=== PATIENT | male | born 1975 | race Caucasian/White ===

== ENCOUNTER 2021-04-18 03:35 | Emergency (ER) | payer BC, OTHER ==
[~2021-04-18] VITALS: Ht 172.7 cm; Wt 79.2 kg
[2021-04-18] MEDS ORDERED: ZOLO50TA PO (03:47)
[2021-04-18] MEDS ORDERED: IBUP1TAB6 PO (03:58)
[2021-04-18 05:35] LABS: BASO % 0.3 % (0.0-1.0); EOS % 0.2 % (0.0-3.0); HEMATOCRIT 40.6 % (42.0-52.0); HEMOGLOBIN 13.9 g/dl (13.5-17.5); LYMPH # 1.2 10^3/uL (1.5-5.0); LYMPH % 9.1 % (24.0-44.0); MEAN CORPUSCULAR HEMOGLOBIN 30.1 pg (27.0-33.0); MEAN CORPUSCULAR HGB CONC 34.2 g/dl (32.0-36.5); MEAN CORPUSCULAR VOLUME 87.9 fl (80.0-96.0); MONO # 0.9 10^3/uL (0.0-0.8); MONO % 7.3 % (2.0-8.0); NEUTROPHILS # 10.5 10^3/uL (1.5-8.5); NEUTROPHILS % 82.8 % (36.0-66.0); PLATELET COUNT, AUTOMATED 198 10^3/uL (150-450); RED BLOOD COUNT 4.62 10^6/uL (4.30-6.10); WHITE BLOOD COUNT 12.7 10^3/uL (4.0-10.0)
[2021-04-18] MEDS ORDERED: MORPHINE 4 MG/ML 1ML VIAL/SYRINGE (J2270) IV ONE (05:35)
[2021-04-18 06:02] LABS: ALT/SGPT 28 U/L (12-78); BILIRUBIN,DIRECT 0.1 MG/DL (0.0-0.2); BILIRUBIN,TOTAL 0.4 MG/DL (0.2-1.0); BLOOD UREA NITROGEN 14 MG/DL (7-18); CALCIUM LEVEL 9.2 MG/DL (8.5-10.1); CARBON DIOXIDE LEVEL 27 MEQ/L (21-32); CHLORIDE LEVEL 107 MEQ/L (98-107); CREATININE FOR GFR 1.37 MG/DL (0.70-1.30); GLOMERULAR FILTRATION RATE > 60.0 (>60); GLUCOSE, FASTING 131 MG/DL (70-100); LIPASE 165 U/L (73-393); POTASSIUM SERUM 3.9 MEQ/L (3.5-5.1); SODIUM LEVEL 142 MEQ/L (136-145); TOTAL PROTEIN 7.3 GM/DL (6.4-8.2)
[2021-04-18] MEDS ORDERED: KETOROLAC 30 MG/ML 1ML VIAL IV ONE (06:50)
--- NOTE | 2021-04-18 07:12 | REPVR ---
PROCEDURE INFORMATION: Exam: US Abdomen, Limited; Right Upper Quadrant Exam date and time: 04/18/2021 6:24 AM Age: 45 years old Clinical indication: Abdominal pain; Epigastric; Additional info: Ruq pain TECHNIQUE: Imaging protocol: US abdomen. Real time ultrasound with image documentation. Limited exam focused on the right upper quadrant. COMPARISON: No relevant prior studies available. FINDINGS: Liver: Normal. No masses. Gallbladder: Large gallstone measuring 2.3 cm seen in the gallbladder neck. There is no gallbladder wall thickening which measures around 2-3 mm. There is no pericholecystic fluid. Common bile duct: The CBD is slightly prominent measuring 7 mm. Pancreas: The pancreatic head is unremarkable. The body and the tail of the pancreas are obscured by bowel gas. Right kidney: The right kidney measures 10.3 x 4.5 x 4.5 cm. There is no right renal mass, stone, cyst or hydronephrosis. IMPRESSION: 1. 2.3 cm gallstone in the gallbladder neck with no sonographic evidence of acute cholecystitis. 2. Slightly prominent CBD at 7 mm. Correlate with symptoms, LFTs and bilirubin level. If indicated MRCP may be obtained for further evaluation. Electronically signed by: Sven Augustin On 04/18/2021 07:11:14 AM
[2021-04-18 08:45] VITALS: BP 124/80
== END 2021-04-18 08:49 | disposition home or self-care (01) ==
LOC: M ED 03:35
DX: K80.50 Calculus of bile duct without cholangitis or cholecystitis without obstruction (principal); K58.9 Irritable bowel syndrome, unspecified; Z79.899 Other long term (current) drug therapy
CPT/HCPCS: 76705; 80048; 80076; 83690; 85025; 93041; 96374; 96375; 99284; J1885; J2270

== ENCOUNTER 2021-04-19 04:54 | Inpatient (IN) | payer OTHER ==
[~2021-04-19] VITALS: Ht 172.7 cm; Wt 79.2 kg
[~2021-04-19 04:54] MED LIST: IBUP1TAB6 PO; ZOLO50TA PO
[2021-04-19 07:25] VITALS: BP 123/76
[2021-04-19] MEDS ORDERED: MORPHINE 4 MG/ML 1ML VIAL/SYRINGE (J2270) IV PRN (07:35)
[2021-04-19] MEDS ORDERED: ONDANSETRON 4MG/2ML VIAL IV PRN (07:35)
[2021-04-19] MEDS ORDERED: HOME MED LIST COMPLETE! XX SCH (08:00)
[2021-04-19 08:12] LABS: BASO % 0.4 % (0.0-1.0); EOS # 0.1 10^3/uL (0.0-0.5); EOS % 0.5 % (0.0-3.0); HEMATOCRIT 39.6 % (42.0-52.0); HEMOGLOBIN 13.1 g/dl (13.5-17.5); LYMPH # 1.5 10^3/uL (1.5-5.0); LYMPH % 14.2 % (24.0-44.0); MEAN CORPUSCULAR HEMOGLOBIN 30.1 pg (27.0-33.0); MEAN CORPUSCULAR HGB CONC 33.1 g/dl (32.0-36.5); MONO % 14.2 % (2.0-8.0); NEUTROPHILS # 7.5 10^3/uL (1.5-8.5); NEUTROPHILS % 70.1 % (36.0-66.0); PLATELET COUNT, AUTOMATED 180 10^3/uL (150-450); RED BLOOD COUNT 4.35 10^6/uL (4.30-6.10)
[2021-04-19 08:22] LABS: PROTHROMBIN TIME 13.6 SECONDS (12.7-14.5)
[2021-04-19 08:23] LABS: PARTIAL THROMBOPLASTIN TIME 37.9 SECONDS (25.9-37.0)
[2021-04-19 08:26] LABS: D-DIMER QUANT 449.21 ng/ml (<500)
[2021-04-19 08:41] LABS: ALBUMIN 3.7 GM/DL (3.2-5.2); ALT/SGPT 27 U/L (12-78); BILIRUBIN,DIRECT 0.3 MG/DL (0.0-0.2); BILIRUBIN,TOTAL 1.1 MG/DL (0.2-1.0); BLOOD UREA NITROGEN 15 MG/DL (7-18); C REACTIVE PROTEIN QUANTITATIV 5.43 MG/DL (0.00-0.30); CALCIUM LEVEL 8.9 MG/DL (8.5-10.1); CARBON DIOXIDE LEVEL 29 MEQ/L (21-32); CHLORIDE LEVEL 108 MEQ/L (98-107); CPK CREATINE PHOSPHOKINASE 122 U/L (39-308); CREATININE FOR GFR 1.19 MG/DL (0.70-1.30); FERRITIN 170 NG/ML (26-388); GLOMERULAR FILTRATION RATE > 60.0 (>60); GLUCOSE, FASTING 112 MG/DL (70-100); LDH LACTATE DEHYDROGENASE 166 U/L (87-241); MAGNESIUM LEVEL 2.3 MG/DL (1.8-2.4); NT-PRO BNP 252 PG/ML (<125); SODIUM LEVEL 142 MEQ/L (136-145); TOTAL PROTEIN 6.8 GM/DL (6.4-8.2); TROPONIN I < 0.02 NG/ML (< 0.10)
[2021-04-19 08:45] LABS: MONO # 1.5 10^3/uL (0.0-0.8); WHITE BLOOD COUNT 10.6 10^3/uL (4.0-10.0)
[2021-04-19] MEDS: D5W/0.9% SODIUM CHLORIDE 1,000 ML IV SCH ×3 (10:50→22:34)
[2021-04-19] MEDS: PANTOPRAZOLE 40MG VIAL (C9113 PER 1) IV SCH (10:51)
[2021-04-19] MEDS: PIPERACILLIN/TAZOBACTAM SOD 3.375 GM in D5W MINI-BAG PLUS 50 ML IV SCH ×3 (10:51→22:34)
--- NOTE | 2021-04-19 11:05 | HPEPDOC ---
General Date of Admission Apr 19, 2021 at 07:25 Date of Service: Apr 19, 2021 Chief Complaint The patient is a 45-year-old male admitted with a reason for visit of Gallbladder Disease. Source: Patient History of Present Illness 45-year-old male with past medical history of anxiety, gallstones diagnosed on 04/18/2021, incidentally found to be Covid 19+ on 04/19/2021 (asymptomatic) presented as a transfer from [facility] for right upper quadrant pain and nausea. Patient reports that he is right upper quadrant pain and nausea started on 04/17/2021 for this he had come to our emergency room and had gallbladder ultrasound done which showed a large gallstone at the neck of the gallbladder without any signs of inflammation or acute cholecystitis patient felt better after a few hours in the emergency room the pain had resolved and he was able to tolerate food so he was discharged home in the morning of 04/18/2021 to follow-up with surgeon. The pain again came back on the night of 04/18/2021. The pain was located in the right upper quadrant sharp stabbing in nature constant 8/10 in intensity without any radiation associated with nausea. So he went to [facility] emergency room. He had a CT scan there which showed distended gallbladder thickening and edema of the gallbladder wall soft tissue stranding and edema within the sabina hepatis all suggesting of acute cholecystitis. As [facility] did not have any surgical facilities so the patient was transf erred here and general surgeon Dr. Bee was consulted. On my exam this morning patient's pain had already resolved even before reaching this hospital, no nausea. He was complaining of feeling hungry. Patient did not have any symptoms from Covid -19. Home Medications Scheduled Sertraline Hcl (Zoloft) 50 Mg Tablet, 50 MG PO QHS, (Reported) Allergies Coded Allergies: No Known Allergies (Unverified , 04/18/21) Past Medical History Medical History anxiety, gall stone Surgical History vasectomy Family History Significant Family History: Diabetes (paternal grandmother), Heart disease (Paternal grandmother) Social History * Smoker: former Smoker (Quit in 2014) Alcohol: Denies Drugs: denies A-FIB/CHADSVASC A-FIB History Current/History of A-Fib/PAF?: No Review of Systems Constitutional: Denies: Chills, Fever, Night Sweats Eyes: Denies: Pain, Vision change ENT: Denies: Head Aches, Ear Pain, Dysphagia Skin: Denies: Rash, Lesions, Breakdown Pulmonary: Denies: Dyspnea, Cough Cardiovascular: Denies: Chest Pain, Palpitations, Orthopnea, Paroxysmal Noc. Dyspnea, Lt Headedness Gastrointestinal: Reports: Nausea, Abdominal Pain Genitourinary: Denies: Dysuria, Frequency, Incontinence, Retention Hematologic: Denies: Bruising, Bleeding Excessively Musculoskeletal: Denies: Neck Pain, Back Pain, Joint Pain, Muscle Pain, Spasms Physical Examination General Exam: Positive: Alert, Cooperative, No Acute Distress Eye Exam: Positive: PERRLA, Conjunctiva & lids normal, EOMI; Negative: Sclera icteric ENT Exam: Positive: Atraumatic, Mucous membr. moist/pink, Pharynx Normal Neck Exam: Positive: Supple; Negative: JVD, thyromegaly Chest Exam: Positive: Clear to auscultation, Normal air movement Heart Exam: Positive: Rate Normal, Regular Rhythm, Normal S1, Normal S2; Negative: Murmurs, Rubs Abdomen Exam: Positive: Normal bowel sounds, Soft; Negative: Tenderness, Hepatospenomegaly Extremity Exam: Negative: Clubbing, Cyanosis, Edema Skin Exam: Positive: Nl turgor and temperature; Negative: Breakdown, Lesion Psych Exam: Positive: Memory Intact, Oriented x 3 Vital Signs Vital Signs Date Time Temp Pulse Resp B/P (MAP) Pulse Ox O2 Delivery O2 Flow Rate FiO2 04/19/21 07:25 98.5 83 18 123/76 (92) 97 Room Air Laboratory Data Labs 24H Laboratory Tests 2 04/19/21 07:58: Immature Granulocyte % (Auto) 0.6, Neutrophils (%) (Auto) 70.1H, Lymphocytes (%) (Auto) 14.2L, Monocytes (%) (Auto) 14.2H, Eosinophils (%) (Auto) 0.5, Basophils (%) (Auto) 0.4, Neutrophils # (Auto) 7.5, Lymphocytes # (Auto) 1.5, Monocytes # (Auto) 1.5H, Eosinophils # (Auto) 0.1, Basophils # (Auto) 0.0, Nucleated Red Blood Cells % (auto) 0.0 04/19/21 07:59: Prothrombin Time 13.6, Prothromb Time International Ratio 1.00, Activated Partial Thromboplast Time 37.9, Fibrinogen 436, D-Dimer, Quantitative 449.21, Anion Gap 5L, Glomerular Filtration Rate > 60.0, Calcium Level 8.9, Magnesium Level 2.3, Ferritin 170, Total Bilirubin 1.1#H, Direct Bilirubin 0.3H, Aspartate Amino Transf (AST/SGOT) 16, Alanine Aminotransferase (ALT/SGPT) 27, Alkaline Phosphatase 79, Lactate Dehydrogenase 166, Total Creatine Kinase 122, Troponin I < 0.02, C-Reactive Protein, Quantitative 5.43H, MK-Iqi-R-Type Natriuretic Peptide 252H, Total Protein 6.8, Albumin 3.7, Albumin/Globulin Ratio 1.2 CBC/BMP Laboratory Tests 04/19/21 07:58 04/19/21 07:59 Microbiology Microbiology 04/19/21 Blood Culture, Received Pending Assessment/Plan 45-year-old male with past medical history of anxiety, gallstones diagnosed on 04/18/2021, incidentally found to be Covid 19+ on 04/19/2021 (asymptomatic) presented as a transfer from [facility] for right upper quadrant pain and nausea. Patient reports that he is right upper quadrant pain and nausea started on 04/17/2021 for this he had come to our emergency room and had gallbladder ultrasound done which showed a large gallstone at the neck of the gallbladder without any signs of inflammation or acute cholecystitis patient felt better after a few hours in the emergency room the pain had resolved and he was able to tolerate food so he was discharged home in the morning of 04/18/2021 to follow-up with surgeon. The pain again came back on the night of 04/18/2021. The pain was located in the right upper quadrant sharp stabbing in nature constant 8/10 in intensity without any radiation associated with nausea. So he went to [facility] emergency room. He had a CT scan there which showed distended gallbladder thickening and edema of the gallbladder wall soft tissue stranding and edema within the sabina hepatis all suggesting of acute cholecystitis. Acute cholecystitis Will allow clear liquids IV fluid, Zosyn, Zofran, morphine as needed for pain Surgical consult Dr. Bee COVID-19 infection Incidental finding, asymptomatic at this time Patient reports that he traveled to [facility] from 04/13/2021 to 04/17/2021. Plan / VTE VTE Prophylaxis Ordered?: Yes REJI SAUER MD Apr 19, 2021 11:05
--- NOTE | 2021-04-19 11:12 | CR.PDOC ---
General Surgery Consultation Date of Consultation 04/19/21 History and Physical CONSULT REPORT FOR: hospitalist service (Dr. Sanches) REASON FOR CONSULTATION: cholecystitis, abdominal pain HISTORY OF PRESENT ILLNESS: Patient is a 45-year-old male, generally healthy who has been having epigastric and right upper quadrant pain since about 2 days ago. He reports sudden onset of pain Thursday evening to morning. He was seen in our ER was worked up and was deemed to have biliary colic. He has a 2.3 cm stone in the neck of the gallbladder but no evidence of inflammation during our study. Had a white cell count of 12.7, normal LFTs. His pain improved with IV Toradol and was subsequently discharged home. He went home and rested but later on, had resumption of his pain prompting him to visit [facility] last night. He was evaluated there was noted to have increase in his leukocytosis to 14,000. He had a CT abdomen and pelvis and I was told that he had evidence for cholecystitis with pericholecystic wall edema as well as edema along the sabina hepatis. He was then transferred back to our hospital for further care. A Covid test was done prior to transfer and this had a positive result. He denies any cough colds loss of smell, fever. He did travel within the past 2 months to [place] in [place] for vacation. He completed 2 doses of Moderna vaccination by January of this year. He tells me prior to his transfer his pain did improve with pain medications there. He was also started on IV antibiotics while at [facility] . At the time I saw him, patient reports he is feeling well. His abdominal pain has resolved. He denies any nausea, vomiting or bloating. He is noted to be afebrile. He had one episode of biliary colic back in July, but relatively asymptomatic since then up until this episode. PAST MEDICAL HISTORY: 1. Depression PAST SURGICAL HISTORY: INCLUDES: 1. Vasectomy PREVIOUS ANESTHESIA REACTIONS: ALLERGIES: Please see below. FAMILY HISTORY: . HOME MEDICATIONS: Please see below. REVIEW OF SYSTEMS: GENERAL: [Denies chills, reports weight gain, reports feeling febrile yesterday]. HEENT: [Denies blurred vision and double vision. Denies ear symptoms. Denies hoarseness]. NECK: Denies any neck pain]. CARDIOVASCULAR: [Denies chest pain and palpitations]. MUSCULOSKELETAL: [Denies arthralgias, back pain and thrombophlebitis]. SKIN: [Denies rash]. NEUROLOGIC: [Denies headache, stroke and transient ischemic attack]. PSYCHIATRIC: [Denies anxiety and depression]. ENDOCRINE: [Denies thyroid disease]. HEMATOLOGY/ONCOLOGY: [Denies bleeding or clotting disorder]. HEART: [Denies any chest pains, palpitations, paroxysmal dyspnea, orthopnea]. PULMONARY: [Denies chronic cough, dyspnea and wheezing]. GASTROINTESTINAL: [Denies rectal bleeding, family history of colon cancer, constipation, diarrhea, dysphagia, heartburn and jaundice]. GENITOURINARY: [Denies dysuria, frequency, hematuria and nocturia]. ENDOCRINE: [Denies polydipsia, polyphagia, polyuria, heat or cold intolerance]. INFECTIOUS: [Denies any recent upper respiratory tract infection, UTI, need for use of antibiotics]. NUTRITION: [Reports good appetite]. PHYSICAL EXAMINATION: VITALS SIGNS: Please see below. GENERAL APPEARANCE:[Patient seen, laying in bed, awake, alert, and oriented. Comfortable, in no acute distress]. SKIN: [Warm and moist]. HEENT: [Normocephalic, atraumatic. [place] palpebral conjunctiva, anicteric sclerae. Lips and mucosa appear moist]. NECK: [Supple, no thyromegaly. No obvious jugular venous distention]. LUNGS: [Clear to auscultation bilaterally. No wheezing appreciated]. HEART: [No chest wall abnormalities. Regular rate and rhythm with no murmurs appreciated]. ABDOMEN: Abdomen is soft, nondistended. Nontender on palpation over the epigastric and right upper quadrant area. Benign appearance. No noticeable umbilical or groin herniation. No prior surgical scars. EXTREMITIES: [Extremities have no deformities. No edema identified] ANCILLARIES: . LABORATORY DATA: Please see below. IMAGING STUDIES: I reviewed the provided CT image of the CT scan abdomen and pelvis done at [facility]. This shows a distended gallbladder with noticeable cholelithiasis at the neck, mild swelling. No free perforation. No ascites. IMPRESSION AND PLAN: Cholelithiasis with acute cholecystitis Asymptomatic Covid positive Patient transfer to us for further care for his cholecystitis from [facility]. The decision making is slightly complicated by the fact that he was tested positive for Covid. He did have prior vaccination and completed 2 doses of it. He is asymptomatic from the Covid point of view. He seems to be improved clinically from the viewpoint of the cholecystitis. His labs were repeated here and his white cell count is down to 10.6. He did have some mild elevation of the bilirubin. Total bilirubin on repeat is 1.1 with a direct fraction of 0.3. Rest of the LFTs are normal. This can be due to the inflammation of the gallbladder wall and also noted inflammation at the sabina hepatis on the CT that was done at [facility] though we do need to watch this and make sure this improves to rule out very small possibility for choledocholithiasis. Clinically his pain has improved so I will start him on clear liquids today and we can advance this as he is able to tolerate this. Recommend continue with antibiotics at this time. If he is able to tolerate diet and his pain is well controlled, I would opt to have him be discharged and I will consider interval cholecystectomy as an outpatient. If he becomes or recurs his symptoms with cholecystitis despite IV antibiotics, will reevaluate him per cholecystectomy during this admission with a return on Thursday. This was also dependent whether he becomes symptomatic with his Covid infection. Vital Signs Vital Signs Date Time Temp Pulse Resp B/P (MAP) Pulse Ox O2 Delivery O2 Flow Rate FiO2 04/19/21 07:25 98.5 83 18 123/76 (92) 97 Room Air Laboratory Data Labs 24H Laboratory Tests 2 04/19/21 07:58: Immature Granulocyte % (Auto) 0.6, Neutrophils (%) (Auto) 70.1H, Lymphocytes (%) (Auto) 14.2L, Monocytes (%) (Auto) 14.2H, Eosinophils (%) (Auto) 0.5, Basophils (%) (Auto) 0.4, Neutrophils # (Auto) 7.5, Lymphocytes # (Auto) 1.5, Monocytes # (Auto) 1.5H, Eosinophils # (Auto) 0.1, Basophils # (Auto) 0.0, Nucleated Red Blood Cells % (auto) 0.0 04/19/21 07:59: Prothrombin Time 13.6, Prothromb Time International Ratio 1.00, Activated Partial Thromboplast Time 37.9, Fibrinogen 436, D-Dimer, Quantitative 449.21, Anion Gap 5L, Glomerular Filtration Rate > 60.0, Calcium Level 8.9, Magnesium Level 2.3, Ferritin 170, Total Bilirubin 1.1#H, Direct Bilirubin 0.3H, Aspartate Amino Transf (AST/SGOT) 16, Alanine Aminotransferase (ALT/SGPT) 27, Alkaline Phosphatase 79, Lactate Dehydrogenase 166, Total Creatine Kinase 122, Troponin I < 0.02, C-Reactive Protein, Quantitative 5.43H, OW-Kyr-P-Type Natriuretic Pepti de 252H, Total Protein 6.8, Albumin 3.7, Albumin/Globulin Ratio 1.2 CBC/BMP Laboratory Tests 04/19/21 07:58 04/19/21 07:59 Microbiology Microbiology 04/19/21 Blood Culture, Received Pending Home Medications Scheduled Sertraline Hcl (Zoloft) 50 Mg Tablet, 50 MG PO QHS, (Reported) Allergies Coded Allergies: No Known Allergies (Unverified , 04/18/21) WINTER DANIELS MD Apr 19, 2021 11:12
[2021-04-19] MEDS: ENOXAPARIN 40MG/0.4ML SYRINGE (J1650 PER 10MG) SC SCH (13:36)
[2021-04-19 13:58] VITALS: BP 123/71
[2021-04-19] MEDS ORDERED: ACETAMINOPHEN TAB 650MG DOSE (2X325MG) PO PRN (17:20)
[2021-04-19] MEDS: KETOROLAC 30 MG/ML 1ML VIAL IV PRN (18:25)
[2021-04-19 22:00] VITALS: BP 110/66; O2SAT 97
[2021-04-20] VITALS (8 sets, daily range): BP systolic 107–141; BP diastolic 58–78; O2SAT 95–98
[2021-04-20] MEDS: PIPERACILLIN/TAZOBACTAM SOD 3.375 GM in D5W MINI-BAG PLUS 50 ML IV SCH ×4 (03:37→22:01)
[2021-04-20] MEDS: KETOROLAC 30 MG/ML 1ML VIAL IV PRN (08:03)
[2021-04-20 08:07] LABS: BASO % 0.3 % (0.0-1.0); EOS # 0.1 10^3/uL (0.0-0.5); EOS % 1.4 % (0.0-3.0); HEMATOCRIT 36.1 % (42.0-52.0); HEMOGLOBIN 12.1 g/dl (13.5-17.5); LYMPH # 1.5 10^3/uL (1.5-5.0); LYMPH % 15.1 % (24.0-44.0); MEAN CORPUSCULAR HEMOGLOBIN 30.4 pg (27.0-33.0); MEAN CORPUSCULAR HGB CONC 33.5 g/dl (32.0-36.5); MEAN CORPUSCULAR VOLUME 90.7 fl (80.0-96.0); MONO # 1.2 10^3/uL (0.0-0.8); MONO % 12.8 % (2.0-8.0); NEUTROPHILS # 6.8 10^3/uL (1.5-8.5); PLATELET COUNT, AUTOMATED 165 10^3/uL (150-450); RED BLOOD COUNT 3.98 10^6/uL (4.30-6.10); WHITE BLOOD COUNT 9.7 10^3/uL (4.0-10.0)
[2021-04-20 08:35] LABS: BLOOD UREA NITROGEN 10 MG/DL (7-18); CALCIUM LEVEL 8.4 MG/DL (8.5-10.1); CARBON DIOXIDE LEVEL 29 MEQ/L (21-32); CHLORIDE LEVEL 111 MEQ/L (98-107); CREATININE FOR GFR 1.15 MG/DL (0.70-1.30); GLOMERULAR FILTRATION RATE > 60.0 (>60); GLUCOSE, FASTING 123 MG/DL (70-100); MAGNESIUM LEVEL 2.1 MG/DL (1.8-2.4); POTASSIUM SERUM 3.7 MEQ/L (3.5-5.1); SODIUM LEVEL 142 MEQ/L (136-145)
[2021-04-20] MEDS: PANTOPRAZOLE 40MG VIAL (C9113 PER 1) IV SCH (09:30)
[2021-04-20] MEDS: ENOXAPARIN 40MG/0.4ML SYRINGE (J1650 PER 10MG) SC SCH (09:30)
[2021-04-20] MEDS: D5W/0.9% SODIUM CHLORIDE 1,000 ML IV SCH (09:30)
--- NOTE | 2021-04-20 11:14 | ECGEPIP ---
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 No prior tracing for comparison. Clincal correlation advised Electronically Signed on 04-20-2021 11:13:51 EDT by Abby Parrish
--- NOTE | 2021-04-20 12:10 | IPNPDOC ---
Subjective Date Seen The patient was seen on 04/20/21. Subjective Chief Complaint/HPI Yesterday patient was started on clears followed by full liquids after that his abdominal pain worsened after dinner so switch back to n.p.o. status he did need 2 doses of Toradol. This morning he he did get 1 dose of Toradol at around 8 AM but at present does not have any pain or discomfort. He also had low-grade temperature last night of 100.1. No bowel movements. Will try clears this afternoon. Patient remains asymptomatic from his Covid infection. Objective Physical Examination General Exam: Positive: Alert, Cooperative, No Acute Distress Eye Exam: Positive: PERRLA, Conjunctiva & lids normal, EOMI; Negative: Sclera icteric ENT Exam: Positive: Atraumatic, Mucous membr. moist/pink, Pharynx Normal Neck Exam: Positive: Supple; Negative: JVD, thyromegaly Chest Exam: Positive: Clear to auscultation, Normal air movement Heart Exam: Positive: Rate Normal, Regular Rhythm, Normal S1, Normal S2; Negative: Murmurs, Rubs Abdomen Exam: Positive: Normal bowel sounds, Soft; Negative: Tenderness, Hepatospenomegaly Extremity Exam: Negative: Clubbing, Cyanosis, Edema Skin Exam: Positive: Nl turgor and temperature; Negative: Breakdown, Lesion Psych Exam: Positive: Memory Intact, Oriented x 3 Assessment /Plan Assessment 45-year-old male with past medical history of anxiety, gallstones diagnosed on 04/18/2021, incidentally found to be Covid 19+ on 04/19/2021 (asymptomatic) presented as a transfer from [facility] for right upper quadrant pain and nausea. Patient reports that he is right upper quadrant pain and nausea started on 04/17/2021 for this he had come to our emergency room and had gallbladder ultrasound done which showed a large gallstone at the neck of the gallbladder without any signs of inflammation or acute cholecystitis patient felt better after a few hours in the emergency room the pain had resolved and he was able to tolerate food so he was discharged home in the morning of 04/18/2021 to follow-up with surgeon. The pain again came back on the night of 04/18/2021. The pain was located in the right upper quadrant sharp stabbing in nature constant 8/10 in intensity without any radiation associated with nausea. So he went to [facility] emergency room. He had a CT scan there which showed distended gallbladder thickening and edema of the gallbladder wall soft tissue stranding and edema within the sabina hepatis all suggesting of acute cholecystitis. Acute cholecystitis Will allow clear liquids IV fluid, Zosyn, Zofran, toradol prn Surgical consult Dr. Bee appreciated will advance diet to clears. COVID-19 infection Incidental finding, asymptomatic at this time Patient reports that he traveled to [facility] from 04/13/2021 to 04/17/2021. Plan/VTE VTE Prophylaxis Ordered?: Yes VS, I&O, 24H, Fishbone Vital Signs/I&O Vital Signs Date Time Temp Pulse Resp B/P (MAP) Pulse Ox O2 Delivery O2 Flow Rate FiO2 04/20/21 06:37 100.0 Room Air 04/20/21 05:32 95 04/20/21 05:32 102 18 109/69 (82) I&O- Last 24 Hours up to 6 AM 04/20/21 06:00 Intake Total 1650 ml Output Total 900 ml Balance 750 ml Laboratory Data 24H LABS Laboratory Tests 2 04/20/21 07:47: Immature Granulocyte % (Auto) 0.4, Neutrophils (%) (Auto) 70.0H, Lymphocytes (%) (Auto) 15.1L, Monocytes (%) (Auto) 12.8H, Eosinophils (%) (Auto) 1.4, Basophils (%) (Auto) 0.3, Neutrophils # (Auto) 6.8, Lymphocytes # (Auto) 1.5, Monocytes # (Auto) 1.2H, Eosinophils # (Auto) 0.1, Basophils # (Auto) 0.0, Nucleated Red Blood Cells % (auto) 0.0, Anion Gap 2L, Glomerular Filtration Rate > 60.0, Calcium Level 8.4L, Magnesium Level 2.1 CBC/BMP Laboratory Tests 04/20/21 07:47 Microbiology Microbiology 04/19/21 Blood Culture - Preliminary, Resulted No growth after 24 hours . All specim... REJI SAUER MD Apr 20, 2021 12:10
[2021-04-21] VITALS: O2SAT 95
[2021-04-21 04:00] VITALS: O2SAT 98
[2021-04-21] MEDS: PIPERACILLIN/TAZOBACTAM SOD 3.375 GM in D5W MINI-BAG PLUS 50 ML IV SCH ×2 (04:25→09:26)
[2021-04-21 05:39] VITALS: BP 119/63
[2021-04-21 07:59] LABS: BASO % 0.3 % (0.0-1.0); EOS # 0.2 10^3/uL (0.0-0.5); EOS % 1.7 % (0.0-3.0); HEMATOCRIT 36.2 % (42.0-52.0); HEMOGLOBIN 11.9 g/dl (13.5-17.5); LYMPH # 1.8 10^3/uL (1.5-5.0); LYMPH % 18.9 % (24.0-44.0); MEAN CORPUSCULAR HEMOGLOBIN 30.1 pg (27.0-33.0); MEAN CORPUSCULAR HGB CONC 32.9 g/dl (32.0-36.5); MEAN CORPUSCULAR VOLUME 91.6 fl (80.0-96.0); MONO # 1.1 10^3/uL (0.0-0.8); NEUTROPHILS # 6.3 10^3/uL (1.5-8.5); NEUTROPHILS % 66.7 % (36.0-66.0); PLATELET COUNT, AUTOMATED 179 10^3/uL (150-450); RED BLOOD COUNT 3.95 10^6/uL (4.30-6.10); WHITE BLOOD COUNT 9.5 10^3/uL (4.0-10.0)
[2021-04-21 08:00] VITALS: O2SAT 98
[2021-04-21 08:21] LABS: BLOOD UREA NITROGEN 10 MG/DL (7-18); CALCIUM LEVEL 8.7 MG/DL (8.5-10.1); CARBON DIOXIDE LEVEL 29 MEQ/L (21-32); CHLORIDE LEVEL 108 MEQ/L (98-107); CREATININE FOR GFR 1.21 MG/DL (0.70-1.30); GLOMERULAR FILTRATION RATE > 60.0 (>60); GLUCOSE, FASTING 92 MG/DL (70-100); POTASSIUM SERUM 3.8 MEQ/L (3.5-5.1); SODIUM LEVEL 142 MEQ/L (136-145)
[2021-04-21] MEDS: ENOXAPARIN 40MG/0.4ML SYRINGE (J1650 PER 10MG) SC SCH (09:27)
[2021-04-21] MEDS: PANTOPRAZOLE 40MG VIAL (C9113 PER 1) IV SCH (09:28)
[2021-04-21] MEDS ORDERED: ACET1TAB55 PO (11:00)
[2021-04-21] MEDS ORDERED: PANT20TA6 PO (11:00)
[2021-04-21] MEDS ORDERED: AUGM875T28 PO (11:00)
[2021-04-21 12:00] VITALS: O2SAT 97
--- NOTE | 2021-04-21 13:27 | DS.PDOC ---
Discharge Summary General Date of Admission Apr 19, 2021 at 07:25 Date of Discharge 04/21/21 Discharge Summary PROCEDURES PERFORMED DURING STAY: [None]. DISCHARGE DIAGNOSES: Acute cholecystitis Gallstone As symptomatic COVID-19 positive COMPLICATIONS/CHIEF COMPLAINT: Gallbladder Disease. HOSPITAL COURSE: 45-year-old male with past medical history of anxiety, gallstones diagnosed on 04/18/2021, incidentally found to be Covid 19+ on 04/19/2021 (asymptomatic), had COVID-19 vaccine presented as a transfer from [facility] for right upper quadrant pain and nausea. Patient reports that he is right upper quadrant pain and nausea started on 04/17/2021 for this he had come to our emergency room and had gallbladder ultrasound done which showed a large gallstone at the neck of the gallbladder without any signs of inflammation or acute cholecystitis patient felt better after a few hours in the emergency room the pain had resolved and he was able to tolerate food so he was discharged home in the morning of 04/18/2021 to follow-up with surgeon. The pain again came back on the night of 04/18/2021. The pain was located in the right upper quadrant sharp stabbing in nature constant 8/10 in intensity without any radiation associated with nausea. So he went to [facility] emergency room. He had a CT scan there which showed distended gallbladder thickening and edema of the gallbladder wall soft tissue stranding and edema within the sabina hepatis all suggesting of acute cholecystitis. Acute cholecystitis Tolerating low-fat low-cholesterol diet Will discharge home with Augmentin, pain control with Tylenol Follow-up with Dr. Bee COVID-19 infection status post vaccination Incidental finding, asymptomatic at this time Patient reports that he traveled to [facility] from 04/13/2021 to 04/17/2021. DISCHARGE MEDICATIONS: Please see below. ALLERGIES: Please see below. PHYSICAL EXAMINATION ON DISCHARGE: VITAL SIGNS: Please see below. General Exam: Positive: Alert, Cooperative, No Acute Distress Eye Exam: Positive: PERRLA, Conjunctiva & lids normal, EOMI; Negative: Sclera icteric ENT Exam: Positive: Atraumatic, Mucous membr. moist/pink, Pharynx Normal Neck Exam: Positive: Supple; Negative: JVD, thyromegaly Chest Exam: Positive: Clear to auscultation, Normal air movement Heart Exam: Positive: Rate Normal, Regular Rhythm, Normal S1, Normal S2; Negative: Murmurs, Rubs Abdomen Exam: Positive: Normal bowel sounds, Soft; Negative: Tenderness, Hepatosplenomegaly Extremity Exam: Negative: Clubbing, Cyanosis, Edema Skin Exam: Positive: Nl turgor and temperature; Negative: Breakdown, Lesion Psych Exam: Positive: Memory Intact, Oriented x 3 LABORATORY DATA: Please see below. ACTIVITY: [As tolerated]. DIET: Low-fat low-cholesterol DISCHARGE PLAN: Home DISCHARGE INSTRUCTIONS: Follow-up with Dr. Bee in 1 week PMD in 3-week DISCHARGE CONDITION: [Stable]. TIME SPENT ON DISCHARGE: 35 minutes. Vital Signs/I&Os Vital Signs Date Time Temp Pulse Resp B/P (MAP) Pulse Ox O2 Delivery O2 Flow Rate FiO2 04/21/21 05:39 99.6 67 18 119/63 (81) 97 Room Air I&O- Last 24 Hours up to 6 AM 04/21/21 06:00 Intake Total 1120 ml Output Total 1200 ml Balance -80 ml Laboratory Data Labs 24H Laboratory Tests 2 04/21/21 06:54: Immature Granulocyte % (Auto) 0.4, Neutrophils (%) (Auto) 66.7H, Lymphocytes (%) (Auto) 18.9L, Monocytes (%) (Auto) 12.0H, Eosinophils (%) (Auto) 1.7, Basophils (%) (Auto) 0.3, Neutrophils # (Auto) 6.3, Lymphocytes # (Auto) 1.8, Monocytes # (Auto) 1.1H, Eosinophils # (Auto) 0.2, Basophils # (Auto) 0.0, Nucleated Red Blood Cells % (auto) 0.0, Anion Gap 5L, Glomerular Filtration Rate > 60.0, Calcium Level 8.7, Magnesium Level 2.0 CBC/BMP Laboratory Tests 04/21/21 06:54 Microbiology Microbiology 04/19/21 Blood Culture - Preliminary, Resulted No Growth after 48 hours. All Specime... Discharge Medications Scheduled Acetaminophen (Acetaminophen) 325 Mg Tablet, 650 MG PO Q6HP Amoxicillin/Potassium Clav (Augmentin 875-125 Tablet) 1 Each Tablet, 1 TAB PO BID Pantoprazole Sodium (Pantoprazole Sodium) 20 Mg Tablet.dr, 20 MG PO DAILY Sertraline Hcl (Zoloft) 50 Mg Tablet, 50 MG PO QHS, (Reported) Allergies Coded Allergies: No Known Allergies (Unverified , 04/18/21) REJI SAUER MD Apr 21, 2021 13:27
== END 2021-04-21 14:05 | disposition home or self-care (01) ==
LOC: M ED INP 04:55 → UNDOADMIN 04:55 → M 4MAIN 07:25
PROVIDERS: ADMIT Internal Medicine; ATTEND Internal Medicine Nephrology
DX: K80.00 Calculus of gallbladder with acute cholecystitis without obstruction (principal); U07.1 COVID-19; F41.9 Anxiety disorder, unspecified; Z79.899 Other long term (current) drug therapy; Z87.891 Personal history of nicotine dependence

== ENCOUNTER → 2021-06-14 | Outpatient (CLI) | payer OTHER ==
[~2021-06-14] MED LIST changes: +ACET1TAB55 PO; +AUGM875T28 PO; +PANT20TA6 PO
== END ==
LOC: M LABSMTC 11:45
PROVIDERS: ATTEND Anesthesiology
DX: Z01.812 Encounter for preprocedural laboratory examination (principal)

== ENCOUNTER 2021-06-19 12:52 | Day surgery (SDC) | payer OTHER ==
[~2021-06-19] VITALS: Ht 172.7 cm; Wt 74.4 kg
[~2021-06-19 12:52] MED LIST changes: +AMPICILLIN SOD/SULBACTAM SOD 3 GM in D5W MINI-BAG PLUS 100 ML IV ONE; +CelecoXIB 400 MG CAP PO ONE; +LIDOCAINE 1% MDV 20ML VIAL SQ PRN; +LR 1,000 ML IV ONE
--- OUTSIDE RECORDS SUMMARY | 2021-06-19 12:56 | CCD | Continuity of Care Document ---
Author Author FRANCES INIGUEZ, Dimitri FRANZO Organization Unknown Address [address] [place] [address] [address] [place] [address] Phone [phone] Care Team Providers Care Gaming Cage Worker Name Role Phone Lucy Sanches M.D. AUTM [phone] Elizabeth Regalado AUTM Problems Description No Information Available Social History Type Date Description Comments Sex Unknown ETOH Use Denies alcohol use Tobacco Use Start: Unknown End: Unknown Patient is a former smoker 1 ppd for 22 years quit 2014 Recreational Drug Use Denies Drug Use Allergies, Adverse Reactions, Alerts Description No Known Drug Allergies Medications Active Medications SIG Qnty Indications Ordering Provide r Date Acetaminophen 325mg Tablets 2 po Q6HRS prn Unknown Pantoprazole Sodium 20mg Tablets D R take one tablet by mouth daily. Unknown Sertraline HCL 50mg Tablets 1 by mouth every day at hs Unknown Immunizations Description No Information Available Vital Signs Date Vital Result Comment 05/09/2021 9:51am BP Systolic 124 mmHg BP Diastolic 83 mmHg Heart Rate 101 /min Body Temperature 98.7 F Height 68 inches 5'8" Weight 168.00 lb BMI (Body Mass Index) 25.5 kg/m2 [place] Body Weight 154 lb Weight 76.205 kg BSA (Body Surface Area) 1.90 m2 Results Description No Information Available Procedures Description No Information Available Medical Devices Description No Information Available Encounters Description No Information Available Assessments Description No Information Available Plan of Treatment No Information Available Functional Status Description No Information Available Mental Status Description No Information Available Referrals Description No Information Available
--- OUTSIDE RECORDS SUMMARY | 2021-06-19 12:56 | CCD | Continuity of Care Document ---
Author Author Dimitri BEE MD RONNIE Organization Unknown Address [address] [place] [address] [address] [place] [address] Phone [phone] Care Team Providers Care Business Analytics Faculty Member Name Role Phone Lucy Sanches M.D. AUTM [phone] Elizabeth Regalado AUTM Problems Description No Information [...] lb BMI (Body Mass Index) 25.5 kg/m2 [place] Body Weight 154 lb Weight 76.205 kg BSA (Body Surface Area) 1.90 m2 Results Description No Information Available Procedures Date Code Description Status 05/09/2021 76565 Office/Outpatient Established Mo d MDM 30-39 Min Completed Medical Devices Description No Information Available Encounters Type Date Location Provider Dx Diagnosis Office Visit 05/09/2021 9:30a [facility] Edu miah Bee MD K80.00 Calculus of gallbladder w ac teller cholecyst w/o obstruction Assessments Date Code Description Provider 05/09/2021 K80.00 Gallbladder calculus with acute cholecystitis and no obstruction Ronnie Bee MD Plan of Treatment Future Appointment(s):* 07/03/2021 1:15 pm - MARI Echavarria at [facility] * 06/19/2021 3:45 pm - Ronnie Bee MD at [facility] 05/09/2021 - Ronnie Bee MD* K80.00 Gallbladder calculus with acute cholecystitis and no obstruction* Comments:* Patient with symptomatic cholelithiasis, biliary colic attacks versus acute cholecystitis back in early April initially treated nonoperatively and was previously with asymptomatic infection of Covid no past is quarantine and is actually Covid negative. He also of note is vaccinated. He has at least 1 new episode of biliary colic attack last night. We will schedule him for robotic assisted laparoscopic cholecystectomy.I discussed with the patient the details of the proposed procedure, the benefits of performing the procedure, the most common risks on doing the procedure. This may include risks of general anesthesia as well as the general risks for laparoscopy including bowel and vascular injury, specific risk for cholecystectomy which includes bile duct injury, bile leak. I have given him a chance to ask questions, voice out concerns. Patient has agreed to proceed Functional Status Description No Information Available Mental Status Description No Information Available Referrals Description No Information Available
--- OUTSIDE RECORDS SUMMARY | 2021-06-19 12:56 | CCD ---
Author Author [facility] Organization [facility] Address Unknown Phone Unavailable Care Team Providers Care Administrative Program Specialist Name Role Phone Johana Castillo Unavailable PROBLEMS Type Condition ICD9-CM Code [id number] Code Onset Dates Condition S tatus W/U Status Risk SNOMED Code Notes Problem Mixed irritable bowel syndrome K58.2 Active confir med 06561688 Problem Dietary counseling Z71.3 Active confirmed 3 88466469 Problem Weight gain R63.5 Active confirmed 4697483 Problem Hyperlipidemia, unspecified hyperlipidemia type E7 8.5 Active confirmed 15579954 Problem Heartburn R12 Active confirmed 36428161 Problem Depression, unspecified depression type F32.9 Active confirmed 95557473 Problem Other and unspecified hyperlipidemia 272.4 Act timi confirmed 29523719 Problem Screening for lipid disorders Z13.220 Active confir med 164183168 Problem Encounter for general adult medical exam ination with abnormal findings Z00.01 Active confirmed 217715196 Problem Encounter for vasectomy counseling Z30.09 Activ e confirmed 334135112 Problem Irritable bowel syndrome with constipation K58.1 Active confirmed 725865162 ALLERGIES No Known Allergies ENCOUNTERS from 1975 to 2021-04-04 Encounter Location Date Provider Diagnosis [address] [address] Mar, Johana Castillo Rash R21 IMMUNIZATIONS Vaccine Route Administration Date Status Boostrix IM Intramuscular Sep 11, 2020 Administered INFLUENZA 3 YRS AND OLDER Preservative free IM Intramuscular Jul 02, 2017 Administered Influenza preservative free IM Intramuscular Jun 27, 2019 Adm inistered Influenza preservative free IM Intramuscular Jun 25, 2018 Adm inistered SOCIAL HISTORY Tobacco Use: Social History Observation Description Date Details (start date - stop date) Former Smoker Sex Assigned At : Social History Observation Description Sex Assigned At Unknown Tobacco Use/Smoking Question Answer Notes Are you a former smoker How long has it been since you last smoked? 6-12 months REASON FOR REFERRAL No Information VITAL SIGNS Height 67.75 in Mar, Weight 174.6 lbs Mar, BMI 26.74 kg/m2 Mar, Temperature 98.2 degrees Fahrenheit Mar, Heart Rate 77 /min Mar, Respiratory Rate 18 /min Mar, Oximetry 98 % Mar, Blood pressure systolic 124 mmHg Mar, Blood pressure diastolic 88 mmHg Mar, MEDICATIONS Medication SIG (Take, Route, Frequency, Duration) Notes Start Da te End Date Status Percocet 5-325 MG 1 tablet as needed Orally every 8 hrs as neede d for 5 days Jul, Not-Taking Doxycycline Monohydrate 100 MG 2 capsules Orally Once a day for 1 day(s) Mar, Active Multivitamin Adult - 1 tablet Orally Once a day for 30 day(s) Active Ibuprofen 800 MG 1 tablet Orally Three times a day for 10 days Jul, Not-Taking Zoloft 50 MG 1 tablet Orally Once a day for 90 days Active PROCEDURES No Information RESULTS No Results REASON FOR VISIT red spot on clavicle MEDICAL (GENERAL) HISTORY Type Description Date Medical History IBS Surgical History Vasectomy with Marcus Soni MD 07/2018 Goals Section No Information Health Concerns No Information MEDICAL EQUIPMENT No Information MENTAL STATUS No Information FUNCTIONAL STATUS No Information ASSESSMENTS Encounter Date Diagnosis Assessment Notes Treatment Notes Treatm ent Clinical Notes Mar, Rash (ICD-10 - R21) Pt with a bite ginger noted over left clavicle with the start of a surrounding erythema. Pt was also evaluated by Johana Medina and we both suspect possible start to erythema migrans but agree that it's too early to know. Rash is within 72 hour window so I will treat prophylactically with doxycycline. Reviewed signs and symptoms of Lyme disease and when to return to the office for testing. Will continue to monitor. 1. Take antibiotic as directed 2. Consider taking antibiotic with food to reduce nausea/GI symptoms 3. Finish entire antibiotic, even if well 4. Consider supplementing diet with yogurt or probiotic to reduce side effects including yeast infection and diarrhea (do not take at the same time as antibiotic) Mar, Other All questions and concerns addressed, patient understanding and agreeable to plan. Patient encouraged to follow up at the clinic for any additional or new questions or concerns. Aura Velasco, scribing the following service on behalf of MARI Damian on 03/28/2021. Time spent includes face to face time wi th patient and review of any pertinent laboratory results and diagnostic imaging. Time spent: 20 minutes. PLAN OF TREATMENT Medication Medication Name Sig Start Date Stop Date Doxycycline Monohydrate 100 MG 2 capsules Orally Once a day for 1 day(s) Mar, Treatment Notes Assessment Notes Clinical Notes Rash Pt with a bite ginger noted ov er left clavicle with the start of a surrounding erythema. Pt was also evaluated by Jhoana Medina and we both suspect possible start to erythema migrans but agree that it's too early to know. Rash is within 72 hour window so I will treat prophylactically with doxycycline. Reviewed signs and symptoms of Lyme disease and when to return to the office for testing. Will continue to monitor.1. Take antibiotic as directed 2. Consider taking antibiotic with food to reduce nausea/GI symptoms 3. Finish entire antibiotic, even if well 4. Consider supplementing diet with yogurt or probiotic to reduce side effects including yeast infection and diarrhea (do not take at the same time as antibiotic) Next Appt Details prn Reason: Insurance Providers Payer Name Payer Address Payer Phone Insured Name Patient Relati onship to Insured Coverage Start Date Coverage End Date [facility] [address] [facility] [id number] Dimitri Alanis self
--- OUTSIDE RECORDS SUMMARY | 2021-06-19 12:56 | CCD | Continuity of Care Document ---
Author Author [facility] Dimitri Mott Organization Unknown Address [address] [place] [address] [place] [address] Phone [phone] Care Team Providers Care Nitroglycerin Supervisor Name Role Phone [facility] AUTM [phone] Problems Description No Information Available Social History Type Date Description Comments Sex Unknown Allergies, Adverse Reactions, Alerts Description No Information Available Medications Description No Information Available Immunizations Description No Information Available Vital Signs Description No Information Available Results Description No Information Available Procedures Description No Information Available Medical Devices Description No Information Available Encounters Description No Information Available Assessments Date Code Description Provider 05/01/2021 Z20.828 Contact with and (maciel spected) exposure to other viral communicable diseases MARI Powers Plan of Treatment No Information Available Functional Status Description No Information Available Mental Status Description No Information Available Referrals Description No Information Available
--- OUTSIDE RECORDS SUMMARY | 2021-06-19 12:56 | CCD | Continuity of Care Document ---
Author Author Dimitri SANDS Organization Unknown Address [address] [place] [address] Phone [phone] Care Team Providers Care Air Conditioning Coil Assembler Name Role Phone [facility] AUTM [phone] Problems Description No Information Available Social History [...]
--- OUTSIDE RECORDS SUMMARY | 2021-06-19 12:56 | CCD ---
Continuity of Care Document (CCD) Created on: 05/01/2021 Dimitri Alanis External Reference #: [id number] : [id number] Sex: Male Author Author Dimitri SANDS Organization Unknown Address [address] [place] [address] Phone [phone] Care Team Providers Care Public Policy Coordinator Name Role Phone [facility] AUTM [phone] Problems Description No Information Available Social History [...]
--- OUTSIDE RECORDS SUMMARY | 2021-06-19 12:56 | CCD | Continuity of Care Document ---
Author Author Dimitri SANDS Organization Unknown Address [address] [place] [address] Phone [phone] Care Team Providers Care Union Organizer Name Role Phone [facility] AUTM [phone] Problems Description No Information Available Social History [...]
--- OUTSIDE RECORDS SUMMARY | 2021-06-19 12:57 | CCD ---
Author Author [facility] Organization [facility] Address Unknown Phone Unavailable Care Team Providers Care Core Worker Name Role Phone Aly, Guadalupe Reed ELECTRONIC TECHNOLOGIST-C Unavailable Unavailabl e Aly, [facility] ELECTRONIC TECHNOLOGIST-C Unavailable Unavailabl e Aly, [facility] ELECTRONIC TECHNOLOGIST-C Unavailable Unavailabl e Aly, [facility] Jesus Manuel JACKP-C Unavailable Unavailabl e Aly, [facility] JACKP-C Unavailable Unavailabl e Aly, [facility] Reed ELECTRONIC TECHNOLOGIST-C Unavailable Unavailabl e Aly, [facility] ELECTRONIC TECHNOLOGIST-C Unavailable Unavailabl e Aly, [facility] ELECTRONIC TECHNOLOGIST-C Unavailable Unavailabl e Aly, [facility] ELECTRONIC TECHNOLOGIST-C Unavailable Unavailabl e Aly, [facility] ELECTRONIC TECHNOLOGIST-C Unavailable Unavailabl e Aly, [facility] ELECTRONIC TECHNOLOGIST-C Unavailable Unavailabl e Aly, [facility] JACKP-C Unavailable Unavailabl e Aly, [facility] ELECTRONIC TECHNOLOGIST-C Unavailable Unavailabl e Aly, Guadalupe Nicholsone ELECTRONIC TECHNOLOGIST-C Unavailable Unavailabl e Aly, Regebony W Brianna ELECTRONIC TECHNOLOGIST-C Unavailable Unavailabl e Aly, Guadalupe W Brianna ELECTRONIC TECHNOLOGIST-C Unavailable Unavailabl e Aly, Reginaalistair W Brianna ELECTRONIC TECHNOLOGIST-C Unavailable Unavailabl e Aly, Regebony W Brianna ELECTRONIC TECHNOLOGIST-C Unavailable Unavailabl e Aly, Reginaalistair W Brianna ELECTRONIC TECHNOLOGIST-C Unavailable Unavailabl e Aly, Reginaalistair W Brianna ELECTRONIC TECHNOLOGIST-C Unavailable Unavailabl e Aly, Reginaalistair W Brianna ELECTRONIC TECHNOLOGIST-C Unavailable Unavailabl e Aly, Reginaalistair W Brianna ELECTRONIC TECHNOLOGIST-C Unavailable Unavailabl e Aly, Regebony W Brianna ELECTRONIC TECHNOLOGIST-C Unavailable Unavailabl e Aly, Guadalupe W Brianna ELECTRONIC TECHNOLOGIST-C Unavailable Unavailabl e Aly, Regebony W Brianna ELECTRONIC TECHNOLOGIST-C Unavailable Unavailabl e Aly, Guadalupe W Brianna ELECTRONIC TECHNOLOGIST-C Unavailable Unavailabl e Aly, Reginaalistair W Brianna ELECTRONIC TECHNOLOGIST-C Unavailable Unavailabl e Aly, Regebony W Brianna ELECTRONIC TECHNOLOGIST-C Unavailable Unavailabl e Aly, Guadalupe W Brianna ELECTRONIC TECHNOLOGIST-C Unavailable Unavailabl e Aly, Guadalupe W Brianna ELECTRONIC TECHNOLOGIST-C Unavailable Unavailabl e Aly, Guadalupe W Brianna ELECTRONIC TECHNOLOGIST-C Unavailable Unavailabl e Aly, Regebony W Brianna ELECTRONIC TECHNOLOGIST-C Unavailable Unavailabl e BARAYUGA, Anne MAX MD Unavailable Unavailable BARAYUGA, Anne MAX MD Unavailable Unavailable BARAYUGA, Anne MAX MD Unavailable Unavailable BARAYUGA, Anne MAX MD Unavailable Unavailable BARAYUGA, Anne MAX MD Unavailable Unavailable BARAYUGA, Anne MAX MD Unavailable Unavailable BARAYUGA, Anne MAX MD Unavailable Unavailable BARAYUGA, Anne MAX MD Unavailable Unavailable BARJERARDOUGAAnne MD Unavailable Unavailable BARAYUGA, Anne MAX MD Unavailable Unavailable BARAYUGA, Anne MAX MD Unavailable Unavailable BARAYUGA, Anne MAX MD Unavailable Unavailable BARAYUGA, Anne MAX MD Unavailable Unavailable BARAYUGA, Anne FRANZO MD Unavailable Unavailable Anne DANIELS MD Unavailable Unavailable Anne DANIELS MD Unavailable Unavailable Anne DANIELS MD Unavailable Unavailable Anne DANIELS MD Unavailable Unavailable Anne DANIELS MD Unavailable Unavailable Anne DANIELS MD Unavailable Unavailable Anne DANIELS MD Unavailable Unavailable Anne DANIELS MD Unavailable Unavailable Anne DANIELS MD Unavailable Unavailable Anne DANIELS MD Unavailable Unavailable Anne DANIELS MD Unavailable Unavailable nAne DANIELS MD Unavailable Unavailable Anne DANIELS MD Unavailable Unavailable Anne DANIELS MD Unavailable Unavailable Anne DANIELS MD Unavailable Unavailable Anne DANIELS MD Unavailable Unavailable Anne DANIELS MD Unavailable Unavailable Anne DANIELS MD Unavailable Unavailable Anne DANIELS MD Unavailable Unavailable Anne DANIELS MD Unavailable Unavailable Alberry, D Shana ELECTRONIC TECHNOLOGIST Unavailable Unavailable Alberry, D Shana ELECTRONIC TECHNOLOGIST Unavailable Unavailable Alberry, D Shana ELECTRONIC TECHNOLOGIST Unavailable Unavailable Alberry, D Shana ELECTRONIC TECHNOLOGIST Unavailable Unavailable Alberry, D Shana ELECTRONIC TECHNOLOGIST Unavailable Unavailable Alberry, D Shana ELECTRONIC TECHNOLOGIST Unavailable Unavailable Alberry, D Shana ELECTRONIC TECHNOLOGIST Unavailable Unavailable Alberry, D Shana ELECTRONIC TECHNOLOGIST Unavailable Unavailable Alberry, D Shana ELECTRONIC TECHNOLOGIST Unavailable Unavailable Alberry, D Shana ELECTRONIC TECHNOLOGIST Unavailable Unavailable Alberry, D Shana ELECTRONIC TECHNOLOGIST Unavailable Unavailable Alberry, D Shana ELECTRONIC TECHNOLOGIST Unavailable Unavailable Alberry, D Shana ELECTRONIC TECHNOLOGIST Unavailable Unavailable Alberry, D Shana ELECTRONIC TECHNOLOGIST Unavailable Unavailable Alberry, D Shana ELECTRONIC TECHNOLOGIST Unavailable Unavailable Alberry, D Shana ELECTRONIC TECHNOLOGIST Unavailable Unavailable Alberry, D Shana ELECTRONIC TECHNOLOGIST Unavailable Unavailable Alberry, D Shana ELECTRONIC TECHNOLOGIST Unavailable Unavailable Alberry, D Shana ELECTRONIC TECHNOLOGIST Unavailable Unavailable Alberry, D Shana ELECTRONIC TECHNOLOGIST Unavailable Unavailable Alberry, D Shana ELECTRONIC TECHNOLOGIST Unavailable Unavailable Alberry, D Shana ELECTRONIC TECHNOLOGIST Unavailable Unavailable Alberry, D Shana ELECTRONIC TECHNOLOGIST Unavailable Unavailable Alberry, D Shana ELECTRONIC TECHNOLOGIST Unavailable Unavailable Alberry, D Shana ELECTRONIC TECHNOLOGIST Unavailable Unavailable Alberry, D Shana ELECTRONIC TECHNOLOGIST Unavailable Unavailable Alberry, D Shana ELECTRONIC TECHNOLOGIST Unavailable Unavailable Alberry, D Shana ELECTRONIC TECHNOLOGIST Unavailable Unavailable Alberry, D Shana ELECTRONIC TECHNOLOGIST Unavailable Unavailable Alberry, D Shana ELECTRONIC TECHNOLOGIST Unavailable Unavailable Alberry, D Shana ELECTRONIC TECHNOLOGIST Unavailable Unavailable Alberry, D Shana ELECTRONIC TECHNOLOGIST Unavailable Unavailable Alberry, D Shana ELECTRONIC TECHNOLOGIST Unavailable Unavailable Alberry, D Shana ELECTRONIC TECHNOLOGIST Unavailable Unavailable Alberry, D Shana ELECTRONIC TECHNOLOGIST Unavailable Unavailable Alberry, D Shana ELECTRONIC TECHNOLOGIST Unavailable Unavailable Alberry, D Shana ELECTRONIC TECHNOLOGIST Unavailable Unavailable Alberry, D Shana ELECTRONIC TECHNOLOGIST Unavailable Unavailable Alberry, D Shana ELECTRONIC TECHNOLOGIST Unavailable Unavailable Alberry, D Shana ELECTRONIC TECHNOLOGIST Unavailable Unavailable Alberry, D Shana ELECTRONIC TECHNOLOGIST Unavailable Unavailable Alberry, D Shana ELECTRONIC TECHNOLOGIST Unavailable Unavailable Alberry, D Shana ELECTRONIC TECHNOLOGIST Unavailable Unavailable Alberry, D Shana ELECTRONIC TECHNOLOGIST Unavailable Unavailable Alberry, D Shana ELECTRONIC TECHNOLOGIST Unavailable Unavailable Alberry, D Shana ELECTRONIC TECHNOLOGIST Unavailable Unavailable Alberry, D Shana ELECTRONIC TECHNOLOGIST Unavailable Unavailable Alberry, D Shana ELECTRONIC TECHNOLOGIST Unavailable Unavailable Alberry, D Shana ELECTRONIC TECHNOLOGIST Unavailable Unavailable Alberry, D Shana ELECTRONIC TECHNOLOGIST Unavailable Unavailable Alberry, D Shana ELECTRONIC TECHNOLOGIST Unavailable Unavailable Alberry, D Shana ELECTRONIC TECHNOLOGIST Unavailable Unavailable Alberry, D Shana ELECTRONIC TECHNOLOGIST Unavailable Unavailable Alberry, D Shana ELECTRONIC TECHNOLOGIST Unavailable Unavailable Alberry, D Shana ELECTRONIC TECHNOLOGIST Unavailable Unavailable BETINA ARZOLA Unavailable Unavailable Emil ARZOLA MD Unavailable Unavailable Emil ARZOLA MD Unavailable Unavailable Emil ARZOLA MD Unavailable Unavailable Emil ARZOLA MD Unavailable Unavailable Emil ARZOLA MD Unavailable Unavailable Emil ARZOLA MD Unavailable Unavailable Emil ARZOLA MD Unavailable Unavailable Emil ARZOLA MD Unavailable Unavailable Emil ARZOLA MD Unavailable Unavailable Cathy STANLEYOPHER PA Unavailable Unavailable SYMENOJesus Manuel G CHRISTOPHER PA Unavailable Unavailable SYMENOW, G CHRISTOPHER PA Unavailable Unavailable SYMENOW, G CHRISTOPHER PA Unavailable Unavailable SYMENOW, G CHRISTOPHER PA Unavailable Unavailable SYMENOW, G CHRISTOPHER PA Unavailable Unavailable SYMENOW, G CHRISTOPHER PA Unavailable Unavailable SYMENOW, G CHRISTOPHER PA Unavailable Unavailable SYMENOW, G CHRISTOPHER PA Unavailable Unavailable SYMENOW, G CHRISTOPHER PA Unavailable Unavailable SYMENOW, G CHRISTOPHER PA Unavailable Unavailable SYMENOW, G CHRISTOPHER PA Unavailable Unavailable SYMENOW, G CHRISTOPHER PA Unavailable Unavailable SYMENOW, G CHRISTOPHER PA Unavailable Unavailable SYMENOW, G CHRISTOPHER PA Unavailable Unavailable SYMENOW, G CHRISTOPHER PA Unavailable Unavailable Tipton, Elizabeth RPA-C Unavailable Unavailable Tipton, Elizabeth RPA-C Unavailable Unavailable Tipton, Elizabeth RPA-C Unavailable Unavailable Tipton, Elizabeth RPA-C Unavailable Unavailable Tipton, Elizabeth RPA-C Unavailable Unavailable Tipton, Elizabeth RPA-C Unavailable Unavailable Tipton, Elizabeth RPA-C Unavailable Unavailable Tipton, Elizabeth RPA-C Unavailable Unavailable Tipton, Elizabeth RPA-C Unavailable Unavailable Tipton, Elizabeth RPA-C Unavailable Unavailable Tipton, Elizabeth RPA-C Unavailable Unavailable Tipton, Elizabeth RPA-C Unavailable Unavailable Tipton, Elizabeth RPA-C Unavailable Unavailable Tipton, Elizabeth RPA-C Unavailable Unavailable Tipton, Elizabeth RPA-C Unavailable Unavailable Tipton, Elizabeth RPA-C Unavailable Unavailable Tipton, Elizabeth RPA-C Unavailable Unavailable Tipton, Elizabeth RPA-C Unavailable Unavailable Jonathan, M Johana PA-C Unavailable Unavailable Jonathan, M Johana PA-C Unavailable Unavailable Jonathan, M Johana PA-C Unavailable Unavailable Jonathan, M Johana PA-C Unavailable Unavailable Jonathan, M Johana PA-C Unavailable Unavailable Jonathan, M Johana PA-C Unavailable Unavailable Jonathan, M Johana PA-C Unavailable Unavailable Jonathan, M Johana PA-C Unavailable Unavailable Jonathan, M Johana PA-C Unavailable Unavailable Jonathan, M Johana PA-C Unavailable Unavailable Jonathan, M Johana PA-C Unavailable Unavailable Jonathan, M Johana PA-C Unavailable Unavailable Jonathan, M Johana PA-C Unavailable Unavailable Jonathan, M Johana PA-C Unavailable Unavailable Jonathan, M Johana PA-C Unavailable Unavailable Jonathan, M Johana PA-C Unavailable Unavailable Jonathan, M Johana PA-C Unavailable Unavailable Jonathan, M Johana PA-C Unavailable Unavailable Jonathan, M Johana PA-C Unavailable Unavailable Jonathan, M Johana PA-C Unavailable Unavailable Jonathan, M Johana PA-C Unavailable Unavailable Jonathan, M Johana PA-C Unavailable Unavailable Jonathan, M Johana PA-C Unavailable Unavailable Jonathan, M Johana PA-C Unavailable Unavailable Jonathan, M Johana PA-C Unavailable Unavailable Jonathan, M Johana PA-C Unavailable Unavailable Jonathan, M Johana PA-C Unavailable Unavailable Jonathan, M Johana PA-C Unavailable Unavailable Jonathan, M Johana PA-C Unavailable Unavailable Jonathan, M Johana PA-C Unavailable Unavailable Jonathan, M Johana PA-C Unavailable Unavailable Jonathan, M Johana PA-C Unavailable Unavailable Jonathan, M Johana PA-C Unavailable Unavailable Jonathan, M Johana PA-C Unavailable Unavailable Jonathan, M Johana PA-C Unavailable Unavailable ADDIE, JEVON ESSIE PA-C Unavailable Unavailable ADDIE, JEVON ESSIE PA-C Unavailable Unavailable ADDIE, JEVON ESSIE PA-C Unavailable Unavailable ADDIE, JEVON ESSIE PA-C Unavailable Unavailable ADDIE, JEVON ESSIE PA-C Unavailable Unavailable ADDIE, JEVON ESSIE PA-C Unavailable Unavailable ADDIE, JEVON ESSIE PA-C Unavailable Unavailable ADDIE, JEVON ESSIE PA-C Unavailable Unavailable ADDIE, JEVON ESSIE PA-C Unavailable Unavailable ADDIE, JEVON ESSIE PA-C Unavailable Unavailable TERRAZASTATENDA ELECTRONIC TECHNOLOGIST-C, MSN Unavailable Unavailab le TERRAZASTATEA ELECTRONIC TECHNOLOGIST-C, MSN Unavailable Unavailab le TERRAZASTATEA ELECTRONIC TECHNOLOGIST-C, MSN Unavailable Unavailab le TERRAZASTATEA ELECTRONIC TECHNOLOGIST-C, MSN Unavailable Unavailab le TERRAZASTATEA ELECTRONIC TECHNOLOGIST-C, MSN Unavailable Unavailab le TERRAZASTATEA ELECTRONIC TECHNOLOGIST-C, MSN Unavailable Unavailab le TERRAZASTATEA ELECTRONIC TECHNOLOGIST-C, MSN Unavailable Unavailab le TERRAZASTATEA ELECTRONIC TECHNOLOGIST-C, MSN Unavailable Unavailab le TERRAZASTATEA ELECTRONIC TECHNOLOGIST-C, MSN Unavailable Unavailab le TERRAZASTATEA ELECTRONIC TECHNOLOGIST-C, MSN Unavailable Unavailab le TERRAZASTATEA ELECTRONIC TECHNOLOGIST-C, MSN Unavailable Unavailab le TERRAZAS, TATE MEGHAN ELECTRONIC TECHNOLOGIST-C, MSN Unavailable Unavailab le TERRAZAS, TATE MEGHAN ELECTRONIC TECHNOLOGIST-C, MSN Unavailable Unavailab le TERRAZAS, TATE MEGHAN ELECTRONIC TECHNOLOGIST-C, MSN Unavailable Unavailab le TERRAZAS, TATE MEGHAN ELECTRONIC TECHNOLOGIST-C, MSN Unavailable Unavailab le TERRAZAS, TATE MEGHAN ELECTRONIC TECHNOLOGIST-C, MSN Unavailable Unavailab le TERRAZAS, TATE MEGHAN ELECTRONIC TECHNOLOGIST-C, MSN Unavailable Unavailab le TERRAZAS, TATE MEGHAN ELECTRONIC TECHNOLOGIST-C, MSN Unavailable Unavailab le TERRAZAS, TATE MEGHAN ELECTRONIC TECHNOLOGIST-C, MSN Unavailable Unavailab le TERRAZAS, TATE MEGHAN ELECTRONIC TECHNOLOGIST-C, MSN Unavailable Unavailab le TERRAZAS, TATE MEGHAN ELECTRONIC TECHNOLOGIST-C, MSN Unavailable Unavailab le TERRAZAS, TATE MEGHAN ELECTRONIC TECHNOLOGIST-C, MSN Unavailable Unavailab le TERRAZAS, TATE MEGHAN ELECTRONIC TECHNOLOGIST-C, MSN Unavailable Unavailab le TERRAZAS, TATE MEGHAN ELECTRONIC TECHNOLOGIST-C, MSN Unavailable Unavailab le TERRAZAS, TATE MEGHAN ELECTRONIC TECHNOLOGIST-C, MSN Unavailable Unavailab le TERRAZAS, TATE MEGHAN ELECTRONIC TECHNOLOGIST-C, MSN Unavailable Unavailab le TERRAZAS, TATE MEGHAN ELECTRONIC TECHNOLOGIST-C, MSN Unavailable Unavailab le TERRAZAS, TATE MEGHAN ELECTRONIC TECHNOLOGIST-C, MSN Unavailable Unavailab le TERRAZAS, TATE MEGHAN ELECTRONIC TECHNOLOGIST-C, MSN Unavailable Unavailab le TERRAZAS, TATE MEGHAN ELECTRONIC TECHNOLOGIST-C, MSN Unavailable Unavailab le TERRAZAS, TATE MEGHAN ELECTRONIC TECHNOLOGIST-C, MSN Unavailable Unavailab le TERRAZAS, TATE MEGHAN ELECTRONIC TECHNOLOGIST-C, MSN Unavailable Unavailab le TERRAZAS, TATE MEGHAN ELECTRONIC TECHNOLOGIST-C, MSN Unavailable Unavailab le TERRAZAS, TATE MEGHAN ELECTRONIC TECHNOLOGIST-C, MSN Unavailable Unavailab le TERRAZAS, TATE MEGHAN ELECTRONIC TECHNOLOGIST-C, MSN Unavailable Unavailab le TERRAZAS, TATE MEGHAN ELECTRONIC TECHNOLOGIST-C, MSN Unavailable Unavailab le TERRAZAS, TATE MEGHAN ELECTRONIC TECHNOLOGIST-C, MSN Unavailable Unavailab le TERRAZAS, TATE MEGHAN ELECTRONIC TECHNOLOGIST-C, MSN Unavailable Unavailab le TERRAZAS, TATE ALANNDA ELECTRONIC TECHNOLOGIST-C, MSN Unavailable Unavailab le TERRAZAS, TATE ALANNDA ELECTRONIC TECHNOLOGIST-C, MSN Unavailable Unavailab le TERRAZAS, TATE ALANNDA ELECTRONIC TECHNOLOGIST-C, MSN Unavailable Unavailab le TERRAZAS, TATE ALANNDA ELECTRONIC TECHNOLOGIST-C, MSN Unavailable Unavailab le TERRAZAS, TATE ALANNDA ELECTRONIC TECHNOLOGIST-C, MSN Unavailable Unavailab le TERRAZAS, TATE ALANNDA ELECTRONIC TECHNOLOGIST-C, MSN Unavailable Unavailab le TERRAZAS, TATE ALANNDA ELECTRONIC TECHNOLOGIST-C, MSN Unavailable Unavailab le Re-disclosure Warning The records that you are about to access may contain information from federally-assisted alcohol or drug abuse programs. If such information is present, then the following federally mandated warning applies: This information has been disclosed to you from records protected by federal confidentiality rules (42 CFR part 2). The federal rules prohibit you from making any further disclosure of this information unless further disclosure is expressly permitted by the written consent of the person to whom it pertains or as otherwise permitted by 42 CFR part 2. A general authorization for the release of medical or other information is NOT sufficient for this purpose. The Federal rules restrict any use of the information to criminally investigate or prosecute any alcohol or drug abuse patient.The records that you are about to access may contain highly sensitive health information, the redisclosure of which is protected by Article 27-F of the [facility] Public Health law. If you continue you may have access to information: Regarding HIV / AIDS; Provided by facilities licensed or operated by the [facility] Office of Mental Health; or Provided by the [facility] Office for People With Developmental Disabilities. If such information is present, then the following [facility] mandated warning applies: This information has been disclosed to you from confidential records which are protected by state law. State law prohibits you from making any further disclosure of this information without the specific written consent of the person to whom it pertains, or as otherwise permitted by law. Any unauthorized further disclosure in violation of state law may result in a fine or group home sentence or both. A general authorization for the release of medical or other information is NOT sufficient authorization for further disc losure. Encounters Encounter Providers Location Date Indications Data Source(s ) Outpatient Attender: WINTER Teran/Inge/Jeff/ Reinanthony 05/09/2021 09:30:00 AM EDT [facility] ([facility] actice, ) Emergency Attender: SANIA STANLEY PAReferrer : Elizabeth [facility]GE EMERGENCY ROOM-ER 04/19/2021 02:06:00 AM EDT - 04/19/2021 06:35:00 AM EDT [facility] Patient discharged. Outpatient Attender: Johana Castillo PA-C 03/28/2021 03:00 :00 PM EDT [facility] Outpatient [facility] 03/28/2021 12:00:00 AM EDT eCW1 ([facility]) Outpatient [facility] 01/01/2021 12:00:00 AM EDT eCW1 ([facility]) Outpatient [facility] 12/04/2020 12:00:00 AM EDT eCW1 ([facility]) Outpatient [facility] 11/29/2020 12:00:00 AM EDT eCW1 ([facility]) Outpatient [facility] 09/28/2020 12:00:00 AM EST eCW1 ([facility]) Outpatient Attender: Elizabeth GALECReferrer: Ravi [facility] EMERGENCY RO[facility]-LAB 09/25/2020 08:40:00 AM EST - 09/25/2020 08:40:00 AM [facility] Outpatient Attender: Elizabeth EDGE 09/11/2020 08:52: 00 AM [facility] Outpatient [facility] 09/11/2020 12:00:00 AM EST eCW1 ([facility]) Outpatient [facility] 09/11/2020 12:00:00 AM EST eCW1 ([facility]) Outpatient Attender: Brianna LEA 08/09/2020 08:18:0 0 AM [facility] Outpatient [facility] 08/09/2020 12:00:00 AM EST eCW1 ([facility]) Outpatient [facility] 08/08/2020 12:00:00 AM EST eCW1 ([facility]) Outpatient [facility] 08/08/2020 12:00:00 AM EST eCW1 ([facility]) Outpatient [facility] 08/06/2020 12:00:00 AM EST eCW1 ([facility]) Outpatient [facility] 08/03/2020 12:00:00 AM EST eCW1 ([facility]) Outpatient [facility] 08/03/2020 12:00:00 AM EST eCW1 ([facility]) Emergency Attender: CIRA ARZOLA MDAt tender: CIRA ARZOLAReferrer: MEGHAN LEA, CELINA EMERGENCY ROOM-ER 07/28/2020 11:12:00 PM EST - 07/29/2020 12:45:00 AM [facility] Patient discharged. Outpatient [facility] 07/26/2020 12:00:00 AM EST eCW1 ([facility]) Outpatient [facility] 06/25/2020 12:00:00 AM EDT eCW1 ([facility]) Outpatient Attender: Shana Villavicencio [facility] EMERGENCY ROOM-LA B 11/30/2014 11:56:00 AM EDT [facility] Outpatient Attender: Shana Villavicencio [facility] EMERGENCY ROOM-LA B 08/15/2014 07:56:00 AM [facility] Outpatient Attender: Shana Villavciencio [facility] EMERGENCY ROOM-RA D 09/22/2012 08:04:00 AM [facility] - 09/22/2012 08:04:00 AM [facility] Outpatient Attender: ESSIE REAL PA-C EMERGENCY ROOM-RAD 1 10/21/2011 01:13:00 PM [facility] - 08/20/2012 01:13:00 PM [facility] Immunizations Vaccine Date Status Description Data Source(s) COVID-19 VACCINE Moderna 01/09/2021 12:00:00 AM EDT completed [facility] Vaccine Series Complete: YESThis Data wa s Submitted to [facility] Via [employer]. COVID-19 VACCINE Moderna 12/12/2020 12:00:00 AM EDT completed [facility] Vaccine Series Complete: NOThis Data was Submitted to [facility] Via [employer]. Tdap 09/11/2020 10:18:00 AM EST completed e CW1 ([facility]) Tdap 09/11/2020 10:18:00 AM EST completed e CW1 ([facility]) Tdap 09/11/2020 10:18:00 AM EST completed e CW1 ([facility]) Tdap 09/11/2020 10:18:00 AM EST completed e CW1 ([facility]) Tdap 09/11/2020 10:18:00 AM EST completed e CW1 ([facility]) Tdap 09/11/2020 10:18:00 AM EST completed e CW1 ([facility]) Tdap 09/11/2020 10:18:00 AM EST completed e CW1 ([facility]) INFLUENZA VIRUS VACCINE QUADRIVAL (6 MOS AND UP)/PF 07/21/2020 12:00:00 AM EST completed [facility] Medications Medication Brand Name Start Date Product Form Dose Route Admi nistrative Instructions Pharmacy Instructions Status Indications Reaction Description Data Source(s) Amoxicillin 875 MG / Clavulanate 125 MG Oral Tablet 87 5-125 mg AMOXICILLIN/POTASSIUM CLAV 04/21/2021 12:00:00 AM EDT tablet 20 TAKE ONE TABLET BY MOUTH TWICE A DAY TAKE ONE TABLET BY MOUTH TWICE A DAY SOLD: 04/21/2021 [facility] 20 mg 04/21/2021 12:00:00 AM EDT tablet,delayed release (DR/EC) 30 TAKE ONE TABLET BY MOUTH EVERY DAY TAKE ONE TABLET BY MOUTH EVERY DAY SOLD: 04/21/2021 [facility] 325 mg 04/21/2021 12:00:00 AM EDT tablet 50 TAKE TWO TABLETS BY MOUTH EVERY 6 HOURS NEEDED FOR PAIN TAKE TWO TABLETS BY MOUTH EVERY 6 HOURS NEEDED FOR PAIN SOLD: 04/21/2021 [facility] 100 mg 03/28/2021 12:00:00 AM EDT capsule 2 TAKE TWO CAPSULES BY MOUTH EVERY DAY FOR 1 DAY TAKE TWO CAPSULES BY MOUTH EVERY DAY FOR 1 DAY SOLD: 03/28/2021 [facility] Doxycycline Monohydrate 100 MG Oral Capsule Doxycycline Jackson hydrate 100 MG 03/28/2021 12:00:00 AM EDT 2.0 {capsules} active Doxycycline Monohydrate 100 MG eCW1 ([facility]) 50 mg 01/01/2021 12:00:00 AM EDT tablet 90 TAKE ONE TABLET BY MOUTH EVERY DAY TAKE ONE TABLET BY MOUTH EVERY DAY SOLD: 04/06/2021 [facility] 50 mg 01/01/2021 12:00:00 AM EDT tablet 90 TAKE ONE TABLET BY MOUTH EVERY DAY TAKE ONE TABLET BY MOUTH EVERY DAY SOLD: 01/03/2021 [facility] 50 mg 12/03/2020 12:00:00 AM EDT tablet 30 TAKE ONE TABLET BY MOUTH EVERY DAY TAKE ONE TABLET BY MOUTH EVERY DAY SOLD: 12/03/2020 [facility] 50 mg 09/28/2020 12:00:00 AM EST tablet 30 TAKE ONE TABLET BY MOUTH EVERY DAY TAKE ONE TABLET BY MOUTH EVERY DAY SOLD: 09/29/2020 [facility] 50 mg 09/28/2020 12:00:00 AM EST tablet 30 TAKE ONE TABLET BY MOUTH EVERY DAY TAKE ONE TABLET BY MOUTH EVERY DAY SOLD: 10/31/2020 [facility] 50 mg 08/09/2020 12:00:00 AM EST tablet 30 TAKE ONE TABLET BY MOUTH EVERY DAY TAKE ONE TABLET BY MOUTH EVERY DAY SOLD: 08/28/2020 [facility] 50 mg 07/26/2020 12:00:00 AM EST tablet 30 TAKE ONE TABLET BY MOUTH EVERY DAY TAKE ONE TABLET BY MOUTH EVERY DAY SOLD: 07/28/2020 [facility] 50 mg 06/25/2020 12:00:00 AM EDT tablet 30 TAKE ONE TABLET BY MOUTH EVERY DAY TAKE ONE TABLET BY MOUTH EVERY DAY SOLD: 06/27/2020 [facility] Insurance Providers Payer name Policy type / Coverage type Policy ID Covered alliance party ID Covered alliance party's relationship to [place] Policy [place] Plan Information BCBS EXCE[place] [id number] [place] [id number] BCBS [employer]CE[employer] [id number] [place] [id number] AETNA [id number] SP [id number] [employer] [id number] S U [id number] [place] [id number] S L [id number] [employer]BS [employer] [id number] S L [id number] [employer] [id number] SP U [id number] BCBS [place] [id number] SP [id number] [employer] [id number] S U [id number] BCBS [employer] [id number] S [id number] [employer]BS [employer] [id number] [place] [id number] ANSI-Commercial [id number] ANSI-Commercial [id number] BCBS [employer] [id number] [place] [id number] ANSI-Commercial [id number] ANSI-Commercial [id number] BCBS [employer] [id number] [place] [id number] ANSI-Commercial [id number] ANSI-Commercial [id number] [place] BC [id number] S LVI [id number] [employer] [id number] SP [id number] [facility] Scope 5 [id number] SP U [id number] Problems, Conditions, and Diagnoses Code Display Name Description Problem Type Effective Dates Data Source(s) Z87.891 Personal history of nicotine dependence PERSONAL HISTORY OF NICOTINE DEPENDENCE Diagnosis 04/19/2021 02:06:00 AM [facility] Z79.899 Other long term acute care registered nurse (current) drug therapy O THER CORRECTION (CURRENT) DRUG THERAPY Diagnosis 04/19/2021 02:06:[address] [facility] K81.0 Acute cholecystitis ACUTE CHOLECYSTITIS Diagnosis 0 04/19/2021 02:06:00 AM [facility] U07.1 COVID-19 COVID-19 Diagnosis 04/19/2021 02:06:00 AM [facility] R10.11 Right upper quadrant pain RIGHT UPPER QUADRANT PAIN Di agnosis 04/19/2021 02:06:00 AM [facility] R21 Rash and other nonspecific skin eruption RASH AND OTHER NONSPECIFIC SKIN ERUPTION Diagnosis 03/28/2021 03:00:[address] [facility] Z13.29 Encounter for screening for other suspec sherry endocrine disorder ENCOUNTER FOR SCREENING FOR OTH SUSPECTE Diagnosis 09/25/2020 08:40:00 AM [facility] R73.03 PREDIABETES PREDIABETES Diagnosis 09/25/2020 08:40:00 AM [facility] E78.5 Hyperlipidemia, unspecified HYPERLIPIDEMIA, UNSPECIFIE D Diagnosis 09/25/2020 08:40:00 AM [facility] E66.3 Overweight OVERWEIGHT Diagnosis 09/11/2020 08:52:00 AM [facility] Z71.2 Person consulting for explanation of exa mination or test findings PERSON CONSULTING FOR EXPLANATION OF EXAM OR TEST Diagnosis 09/11/2020 08:52: 00 AM [facility] F32.9 Major depressive disorder, single episod e, unspecified MAJOR DEPRESSIVE DISORDER, SINGLE EPISODE, UNSPECI Diagnosis 09/11/2020 08:52:00 AM [facility] Z00.00 Encounter for general adult medical examination without abnormal findings ENCNTR FOR GENERAL ADULT MEDICAL EXAM W/O ABNORMAL FINDINGS Diagnosis 09/11/2020 08:52:00 AM [facility] M54.5 Low back pain LOW BACK PAIN Diagnosis 07/28/2020 11:12:00 PM [facility] R10.13 Epigastric pain EPIGASTRIC PAIN Diagnosis 07/28/2020 11:1 2:00 PM [facility] F32.9 [id number] Depression, unspecified depression type P roblem 09/11/2020 12:00:00 [facility] joselyn) Surgeries/Procedures Procedure Description Date Indications Data Source(s) OFFICE OUTPATIENT VISIT 25 MINUTES 05/09/2021 12:00:00 AM EDT [facility] ([facility], ) Results ID Date Data Source [id number] 05/01/2021 12:00:00 AM EDT [facility] Name Value Range Interpretation Code Description Data Zenaida rce(s) Supporting Document(s) SARS-CoV2 Rapid Antigen Negative [facility] This lab was reported by [facility]. ID Date Data Source [id number] 04/24/2021 10:02:00 AM EDT [facility] DATE OF EXAMINATION: 04/19/2021 1:55 EDT ABD/PEL NO CONTRAST HISTORY: Abdominal pain Comparison:07/28/2020 TECHNIQUE: This CT exam was performed using the following dose reductiontechniques: automated exposure control, adjustment of mA and/or kV according tothe patient's size, and use of iterative reconstruction technique. Standard contiguous axial spiral imaging was obtained from the dome of thediaphragms through the symphysis pubis without oral contrast and withoutintravenous contrast administration and with coronal reformatting. FINDINGS:Lower thorax: Lung bases are clear. No pleural or pericardial effusion. ABDOMEN:Liver: Liver is unremarkable. No focal hepatic lesions Gallbladder and bile ducts: The gallbladder is distended with thickening of thewall and mild pericholecystic formation. Common duct does not appear dilated. Pancreas: Pancreas is normal Spleen: Spleen is normal Adrenals: Normal adrenal Kidneys and ureters: No hydronephrosis or renal stones. No renal masses. Stomach and bowel: Stomach is mild to moderately distended with ingestedmaterial. No dilated small bowel. Colon is unremarkable. Appendix: Normal appendix Peritoneum/retroperitoneum:No free air or free fluid, or collections Lymph nodes:No adenopathy Soft tissues:Unremarkable Bones:Unremarkable Vessels:Unremarkable PELVIS:Bladder: Bladder is normal Reproductive: Prostate measures 3.2 x 3.6 x 3.5 cm IMPRESSION:Thickening of the gallbladder wall with mild pericholecystic inflammation. Acutecholecystitis is not excluded. Recommend right upper quadrant ultrasound forfurther evaluation. Electronically signed in PS360 by: Juancarlos Nelson M.D. 04/19/2021 6:49 EDT Name Value Range Interpretation Code Description Data Zenaida rce(s) Supporting Document(s) ID Date Data Source [id number] 04/19/2021 06:58:00 AM EDT [facility] Patient: ABBY SEN R eport - Physicians/[facility].VisitID: [id number] [place] [address] [phone], MRegistration Date/Time: 04/19/2021 01:40 Weight:77.1 kg (S). Height/Length:68 inches (S). BMI:25.9 PAST HISTORYProblems:Depression.Abdominal Pain.Gallstone(s). Additional Surgeries:Vasectomy. (1 year ago). Medications:Zoloft Oral (Tablet 50 mg) 1 tablet, daily, last dose few days ago. Allergies:No Known Drug Allergy. FAMILY HISTORYNegative - denies family medical history. (Electronically signed by Ching Hatfield 04/19/2021 06:48) Name Value Range Interpretation Code Description Data [facility] rce(s) Supporting Document(s) ID Date Data Source [id number] 04/19/2021 04:10:00 AM EDT [facility] Name Value Range Interpretation Code Description [facility] Document(s) COVID-19 POSITIVE [facility] This lab was ordered by [facility] and reported by [facility]. ID Date Data Source [id number] 04/19/2021 04:25:00 AM EDT [facility] meredith TSYSORDER [id number] Name Value Range Interpretation Code Description Data [facility] rce(s) Supporting Document(s) COVID-19 POSITIVE NEGATIVE [facility] Positive results are indicative of the p resence imEKWQ-YfI-0 RNA.Positive results do not rule out bacterial infection orco-infection with other viruses.This is a rapid molecular isothermal nucleic acidamplification technology (NAAT) in vitro diagnostic testutilizing a loop mediated isothermal amplification (LAMP)test with nicking endonuclease amplification reaction(NEAR) intended for the qualitative detection of nucleicacid from the SARS-CoV-2 viral RNA in direct nasal,nasopharyngeal or throat swabs from individuals who aresuspected of COVID-19.Results are for the indentification of SARS-CoV-2 RNA. HlcCWJF-CjU-1 RNA is generally detectable in respiratorysamples during the actue phase of infection. ID Date Data Source [id number] 04/19/2021 02:28:00 AM EDT [facility] TSYSORDER [id number] Name Value Range Interpretation Code Description Data Zenaida rce(s) Supporting Document(s) WHITE BLOOD COUNT 11.8 K/mm3 4.0-10.0 [facility] RED BLOOD COUNT 4.63 M/mm3 4.50-6.00 [facility] HEMOGLOBIN 14.1 gm/dL 14.0-18.0 [facility] HEMATOCRIT 39.9 % 42.0-54.0 L [facility] MEAN CELL VOLUME 86.2 fl 80-96 [facility] MEAN CORPUSCULAR HEMOGLOBIN 30.5 pg 27.0-31.0 [facility] MEAN CORPUSCULAR HGB CONC 35.3 g/dl 32.0-36.0 [facility] RED CELL DISTRIBUTION WIDTH 11.8 % 10.0-14.5 [facility] PLATELET COUNT 222 K/mm3 172-450 [facility] MEAN PLATELET VOLUME 9.7 fl 9.0-13.0 [facility] pital GRAN % 76.0 % 50-80.0 [facility] IG% 0.1 % 0.0-0.2 [facility] LYMPH % 13.4 % 25.0-50.0 L [facility] MONO % 9.8 % 2.0-10.0 [facility] EOS % 0.3 % 0-5.0 [facility] BASO % 0.4 % 0.0-2.0 [facility] GRAN # 9.0 K/mm3 2.0-8.00 H [facility] IG# 0.0 K/mm3 0.0-0.2 [facility] LYMPH # 1.6 K/mm3 1.0-5.0 [facility] MONO # 1.2 K/mm3 0.10-1.20 [facility] EOS # 0.0 K/mm3 0.0-0.5 [facility] BASO # 0.1 K/mm3 0.0-0.2 [facility] ID Date Data Source [id number] 04/19/2021 02:26:00 AM EDT [facility] TSYSORDER [id number] Name Value Range Interpretation Code Description Data Zenaida rce(s) Supporting Document(s) GLUCOSE 151 mg/dL 74-106 H [facility] BLOOD UREA NITROGEN 13 mg/dL 7-18 [facility] ital CREATININE 1.47 mg/dL 0.7-1.3 H [facility] SODIUM 141 mmol/L 136-145 [facility] POTASSIUM 3.9 mmol/L 3.5-5.1 [facility] CHLORIDE 100 mmol/L 98-107 [facility] CO2 28 mmol/L 21-32 [facility] CALCIUM 9.7 mg/dL 8.5-10.1 [facility] ANION GAP 13.0 mmol/L 5-12 H [facility] GLOMERULAR FILTRATION RATE 52 mL/min [facility] GFR IS CALCULATED IN mL/min/1.73m2 KAYLIE L FUNCTION: >90MILDLY DECREASED: 60-89MILDY TO MODERATELY DECREASED: 45-59 MODERATELY TO SEVERELY DECREASED: 30-44SEVERELY DECREASED: 15-29RENAL FAILURE: <15 AST 18 U/L 15-37 [facility] ALT 27 U/L 12-78 [facility] ALKALINE PHOSPHATASE 92 U/L 46-116 [facility] pital TOTAL BILIRUBIN 1.0 mg/dL 0.2-1.0 [facility] TOTAL PROTEIN 8.3 g/dl 6.4-8.2 H [facility] ALBUMIN 4.4 gm/dL 3.4-5.0 [facility] ID Date Data Source [id number] 04/19/2021 02:26:00 AM EDT [facility] TSYSORDER [id number] Name Value Range Interpretation Code Description Data Zenaida rce(s) Supporting Document(s) PARTIAL THROMBOPLASTIN TIME 25.3 SECONDS 21.2-27.3 [facility] ID Date Data Source [id number] 04/19/2021 02:26:00 AM EDT [facility] TSYSORDER [id number] Name Value Range Interpretation Code Description Data Zenaida rce(s) Supporting Document(s) MAGNESIUM 1.9 mg/dL 1.8-2.4 [facility] ID Date Data Source [id number] 04/19/2021 02:26:00 AM EDT [facility] TSYSORDER [id number] Name Value Range Interpretation Code Description Data Zenaida rce(s) Supporting Document(s) LIPASE 107 U/L 73-393 [facility] ID Date Data Source [id number] 04/19/2021 02:26:00 AM EDT [facility] TSYSORDER [id number] Name Value Range Interpretation Code Description Data Zenaida rce(s) Supporting Document(s) PROTHROMBIN TIME (PATIENT) 10.4 SECONDS 9.1-11.6 [facility] INR 1.00 0.87-1.06 [facility] ID Date Data Source [id number] 04/19/2021 02:16:00 AM EDT [facility] TSYSORDER [id number] Name Value Range Interpretation Code Description Data Zenaida rce(s) Supporting Document(s) URINE RBC 0-2 /hpf 0-3 [facility] URINE WBC NONE SEEN /hpf 0-5 [facility] ID Date Data Source [id number] 04/19/2021 02:16:00 AM EDT [facility] TSYSORDER [id number] Name Value Range Interpretation Code Description Data Zenaida rce(s) Supporting Document(s) URINE COLOR. [facility] URINE APPEARANCE CLEAR [facility] l URINE GLUCOSE (UA) NEGATIVE mg/dL NEGATIVE [facility] URINE BILIRUBIN NEGATIVE NEGATIVE [facility] URINE KETONE NEGATIVE mg/dL NEGATIVE [facility] al SPECIFIC GRAVITY,URINE 1.020 1.005-1.030 [facility] URINE BLOOD TRACE NEGATIVE H [facility] PH,URINE 7.5 5.0-9.0 [facility] URINE PROTEIN NEGATIVE mg/dL NEGATIVE [facility] meredith URINE UROBILINOGEN NORMAL(0.2-1) mg/dL 0-1 [facility] URINE NITRATE NEGATIVE NEGATIVE [facility] URINE LEUKOCYTE ESTERASE NEGATIVE NEGATIVE [facility] ID Date Data Source [id number] 09/25/2020 11:19:00 AM EST [facility] Name Value Range Interpretation Code Description Data Zenaida rce(s) Supporting Document(s) WHITE BLOOD COUNT 5.7 K/mm3 4.0-10.0 [facility] al RED BLOOD COUNT 4.56 M/mm3 4.50-6.00 [facility] l HEMOGLOBIN 13.9 gm/dL 14.0-18.0 L [facility] HEMATOCRIT 40.3 % 42.0-54.0 L [facility] MEAN CELL VOLUME 88.4 fl 80-96 [facility] MEAN CORPUSCULAR HEMOGLOBIN 30.5 pg 27.0-31.0 [facility] MEAN CORPUSCULAR HGB CONC 34.5 g/dl 32.0-36.0 [facility] RED CELL DISTRIBUTION WIDTH 12.0 % 10.0-14.5 [facility] PLATELET COUNT 224 K/mm3 172-450 [facility] MEAN PLATELET VOLUME 9.7 fl 9.0-13.0 [facility] pital GRAN % 50.5 % 50-80.0 L [facility] IG% 0.2 % 0.0-0.2 [facility] LYMPH % 37.7 % 25.0-50.0 [facility] MONO % 9.0 % 2.0-10.0 [facility] EOS % 1.9 % 0-5.0 [facility] BASO % 0.7 % 0.0-2.0 [facility] GRAN # 2.9 K/mm3 2.0-8.00 [facility] IG# 0.0 K/mm3 0.0-0.2 [facility] LYMPH # 2.1 K/mm3 1.0-5.0 [facility] MONO # 0.5 K/mm3 0.10-1.20 [facility] EOS # 0.1 K/mm3 0.0-0.5 [facility] BASO # 0.0 K/mm3 0.0-0.2 [facility] ID Date Data Source [id number] 09/25/2020 09:36:00 AM EST [facility] l Name Value Range Interpretation Code Description Data Zenaida rce(s) Supporting Document(s) CHOLESTEROL 226 mg/dL 0-200 H [facility] TRIGLYCERIDES 213 mg/dL 0-150 H [facility] LDL CHOLESTEROL 142 mg/dL 0-100 H [facility] HDL CHOLESTEROL 41 mg/dL 40-60 [facility] CHOL/HDL RATIO 5.5 0.0-5.0 H [facility] ID Date Data Source [id number] 09/25/2020 09:36:00 AM EST [facility] l Name Value Range Interpretation Code Description Data Zenaida [facility](s) Supporting Document(s) GLUCOSE 96 mg/dL 74-106 [facility] BLOOD UREA NITROGEN 17 mg/dL 7-18 [facility] ital CREATININE 1.42 mg/dL 0.7-1.3 H [facility] SODIUM 141 mmol/L 136-145 [facility] POTASSIUM 4.8 mmol/L 3.5-5.1 [facility] CHLORIDE 103 mmol/L 98-107 [facility] CO2 33 mmol/L 21-32 H [facility] CALCIUM 9.4 mg/dL 8.5-10.1 [facility] ANION GAP 5.0 mmol/L 5-12 [facility] GLOMERULAR FILTRATION RATE 54 mL/min [facility] GFR IS CALCULATED IN mL/min/1.73m2 KAYLIE L FUNCTION: >90MILDLY DECREASED: 60-89MILDY TO MODERATELY DECREASED: 45-59 MODERATELY TO SEVERELY DECREASED: 30-44SEVERELY DECREASED: 15-29RENAL FAILURE: <15 AST 17 U/L 15-37 [facility] ALT 35 U/L 12-78 [facility] ALKALINE PHOSPHATASE 73 U/L 46-116 [facility] pital TOTAL BILIRUBIN 0.6 mg/dL 0.2-1.0 [facility] TOTAL PROTEIN 7.4 g/dl 6.4-8.2 [facility] ALBUMIN 4.2 gm/dL 3.4-5.0 [facility] ID Date Data Source [id number] 09/25/2020 09:30:00 AM [facility] Name Value Range Interpretation Code Description Data Zenaida rce(s) Supporting Document(s) TSH 2.151 uIU/mL 0.36-3.74 [facility] ID Date Data Source [id number] 09/25/2020 09:11:00 AM [facility] Name Value Range Interpretation Code Description Data Zenaida rce(s) Supporting Document(s) HGBA1C 4.8 % 3.8-5.6 [facility] Diabetic > or = to 6.5%Prediabetes 5.7-6 .4%Normal <5.7 ESTIMATED AVERAGE GLUCOSE 91.1 mg/dL [facility] ID Date Data Source [id number] 07/30/2020 07:35:00 AM [facility] DATE OF EXAMINATION: 07/28/2020 23:10 ES T ABD/PEL W WO IV CONTRAST HISTORY: Abdominal pain TECHNIQUE: This CT exam was performed using the following dose reduction techniques:automated exposure control, adjustment of mA and/or kV according to thepatient's size, and use of iterative reconstruction technique. Standard contiguous axial spiral imaging was obtained from the dome of thediaphragms through the symphysis pubis without oral contrast and withoutintravenous contrast administration and with coronal reformatting. FINDINGS: Lower thorax: The visualized lungs are clear. ABDOMEN: Liver: NormalGa llbladder and bile ducts: There is mild distention of the gallbladder. Thereis no cholelithiasis.Pancreas: NormalSpleen: NormalAdrenals: NormalKidneys and ureters: NormalStomach and bowel: Diverticula are still present in the sigmoid colon.Appendix: Normal PELVIS: Bladder: NormalReproductive: Normal A small fat- containing left inguinal hernia is present. Spine: Degenerative change is present in the spine. IMPRESSION: 1. There is mild distention of the gallbladder. There is no cholelithiasis.2. Diverticulosis.3. Small fat- containing left inguinal hernia. Electronically signed in PS360 by: Willam mace M.D. 07/29/2020 8:47 EST Name Value Range Interpretation Code Description Data Zenaida rce(s) Supporting Document(s) ID Date Data Source [id number] 07/29/2020 03:44:00 AM EST [facility] Patient: ABBY SEN Salma Heck eport - Physicians/[facility].VisitID: [id number] [place] [address] [phone], MRegistration Date/Time: 07/28/2020 22:46 Weight:77.1 kg (S). Height/Length:68 inches (S). BMI:25.9 FAMILY HISTORYNo significant family medical history. (Electronically signed by Cira Arzola M.D. 07/29/2020 03:14) Name Value Range Interpretation Code Description Data Zenaida rce(s) Supporting Document(s) ID Date Data Source [id number] 07/28/2020 11:31:00 PM EST [facility] TSYSORDER [id number] Name Value Range Interpretation Code Description Data Zenaida rce(s) Supporting Document(s) LIPASE 187 U/L 73-393 [facility] ID Date Data Source [id number] 07/28/2020 11:31:00 PM EST [facility] TSYSORDER [id number] Name Value Range Interpretation Code Description Data Zenaida rce(s) Supporting Document(s) AMYLASE 58 U/L 25-115 [facility] ID Date Data Source [id number] 07/28/2020 11:31:00 PM [facility] TSYSORDER [id number] Name Value Range Interpretation Code Description Data Zenaida rce(s) Supporting Document(s) GLUCOSE 146 mg/dL 74-106 H [facility] BLOOD UREA NITROGEN 14 mg/dL 7-18 [facility] ital CREATININE 1.4 mg/dL 0.7-1.3 H [facility] SODIUM 141 mmol/L 136-145 [facility] POTASSIUM 3.5 mmol/L 3.5-5.1 [facility] CHLORIDE 100 mmol/L 98-107 [facility] CO2 28 mmol/L 21-32 [facility] CALCIUM 9.4 mg/dL 8.5-10.1 [facility] ANION GAP 13.0 mmol/L 5-12 H [facility] GLOMERULAR FILTRATION RATE 55 mL/min [facility] GFR IS CALCULATED IN mL/min/1.73m2 KAYLIE L FUNCTION: >90MILDLY DECREASED: 60-89MILDY TO MODERATELY DECREASED: 45-59 MODERATELY TO SEVERELY DECREASED: 30-44SEVERELY DECREASED: 15-29RENAL FAILURE: <15 AST 18 U/L 15-37 [facility] ALT 26 U/L 12-78 [facility] ALKALINE PHOSPHATASE 83 U/L 46-116 [facility] pital TOTAL BILIRUBIN 0.4 mg/dL 0.2-1.0 [facility] TOTAL PROTEIN 7.5 g/dl 6.4-8.2 [facility] ALBUMIN 4.4 gm/dL 3.4-5.0 [facility] ID Date Data Source [id number] 07/28/2020 11:14:00 PM [facility] TSYSORDER [id number] Name Value Range Interpretation Code Description Data Zenaida rce(s) Supporting Document(s) WHITE BLOOD COUNT 7.1 K/mm3 4.0-10.0 [facility] RED BLOOD COUNT 4.51 M/mm3 4.50-6.00 [facility] HEMOGLOBIN 13.7 gm/dL 14.0-18.0 L [facility] HEMATOCRIT 39.3 % 42.0-54.0 L [facility] MEAN CELL VOLUME 87.1 fl 80-96 [facility] MEAN CORPUSCULAR HEMOGLOBIN 30.4 pg 27.0-31.0 [facility] MEAN CORPUSCULAR HGB CONC 34.9 g/dl 32.0-36.0 [facility] RED CELL DISTRIBUTION WIDTH 11.7 % 10.0-14.5 [facility] PLATELET COUNT 215 K/mm3 172-450 [facility] MEAN PLATELET VOLUME 9.3 fl 9.0-13.0 [facility] pital GRAN % 42.8 % 50-80.0 L [facility] IG% 0.1 % 0.0-0.2 [facility] LYMPH % 46.6 % 25.0-50.0 [facility] MONO % 8.6 % 2.0-10.0 [facility] EOS % 1.3 % 0-5.0 [facility] BASO % 0.6 % 0.0-2.0 [facility] GRAN # 3.1 K/mm3 2.0-8.00 [facility] IG# 0.0 K/mm3 0.0-0.2 [facility] LYMPH # 3.3 K/mm3 1.0-5.0 [facility] MONO # 0.6 K/mm3 0.10-1.20 [facility] EOS # 0.1 K/mm3 0.0-0.5 [facility] BASO # 0.0 K/mm3 0.0-0.2 [facility] ID Date Data Source [id number] 07/28/2020 11:03:00 PM EST [facility] ital TSYSORDER [id number] Name Value Range Interpretation Code Description Data Zenaida rce(s) Supporting Document(s) URINE COLOR. [facility] URINE APPE[facility]ANCE CLEAR [facility] GLUCOSE (UA) NEGATIVE mg/dL NEGATIVE [facility] URINE BILIRUBIN NEGATIVE NEGATIVE [facility] URINE KETONE 5(TRACE) mg/dL NEGATIVE [facility] SPECIFIC GRAVITY,URINE 1.025 1.001-1.035 [facility] URINE BLOOD NEGATIVE NEGATIVE [facility] PH,URINE 7.0 5.0-9.0 [facility] URINE PROTEIN NEGATIVE mg/dL NEGATIVE [facility] URINE UROBILINOGEN 1 mg/dL 0-1 [facility] URINE NITRATE NEGATIVE NEGATIVE [facility] URINE LEUKOCYTE ESTERASE NEGATIVE NEGATIVE [facility] Procedure Social History Code Duration Value Status Description Data Source(s ) Smoking 03/28/2021 12:00:00 AM EDT Former Smoker completed Former Smoker eCW1 ([facility]) Smoking 09/11/2020 12:00:00 AM EST Former Smoker completed Former Smoker eCW1 ([facility]) Smoking 09/11/2020 12:00:00 AM EST Former Smoker completed Former Smoker eCW1 ([facility]) Smoking 09/11/2020 12:00:00 AM EST Former Smoker completed Former Smoker eCW1 ([facility]) Smoking 09/11/2020 12:00:00 AM EST Former Smoker completed Former Smoker eCW1 ([facility]) Smoking 09/11/2020 12:00:00 AM EST Former Smoker completed Former Smoker eCW1 ([facility]) Smoking 09/11/2020 12:00:00 AM EST Former Smoker completed Former Smoker eCW1 ([facility]) Smoking 08/09/2020 12:00:00 AM EST Former Smoker completed Former Smoker eCW1 ([facility]) Smoking 08/09/2020 12:00:00 AM EST Former Smoker completed Former Smoker eCW1 ([facility]) Vital Signs ID Date Data Source UNK Name Value Range Interpretation Code Description Data Source(s) Heart rate 101 /min 101 /min [facility] ([facility]) Systolic blood pressure 124 mm[Hg] 124 mm[Hg] M [facility] ([facility]) Diastolic blood pressure 83 mm[Hg] 83 mm[Hg] [facility] ([facility]) Body temperature 98.7 [degF] 98.7 [degF] [facility] ([facility]) Body height 68 [in_i] 68 [in_i] [facility] ([facility]) 5'8" Body weight 168.00 [lb_av] 168.00 [lb_av] [facility] Body mass index (BMI) [Ratio] 25.5 kg/m2 25.5 k g/m2 [facility] ([facility]) [place] body weight 154 [lb_av] 154 [lb_av] [facility] Body weight 76.205 kg 76.205 kg [facility] ([facility]) Body surface area Derived from formula 1.90 m2 1.90 m2 [facility] ([facility]) Body height 67.75 [in_i] 67.75 [in_i] eCW1 ([facility]) Body weight 174.6 [lb_av] 174.6 [lb_av] eCW1 ([facility]) Body mass index (BMI) [Ratio] 26.74 kg/m2 26.74 kg/m2 eCW1 ([facility]) Body temperature 98.2 [degF] 98.2 [degF] eCW1 ( [facility]) Heart rate 77 /min 77 /min eCW1 ([facility]) Respiratory rate 18 /min 18 /min eCW1 ([facility]) Oxygen saturation in Arterial blood by Pulse oximetry 98 % 98 % eCW1 ([facility]) Body height 67.75 [in_i] 67.75 [in_i] eCW1 ([facility]) Body weight 173.8 [lb_av] 173.8 [lb_av] eCW1 ([facility]) Body mass index (BMI) [Ratio] 26.62 kg/m2 26.62 kg/m2 eCW1 ([facility]) Body temperature 97.0 [degF] 97.0 [degF] eCW1 ( [facility]) Heart rate 71 /min 71 /min eCW1 ([facility]) Respiratory rate 18 /min 18 /min eCW1 ([facility]) Oxygen saturation in Arterial blood by Pulse oximetry 97 % 97 % eCW1 ([facility]) Body height 67.75 [in_i] 67.75 [in_i] eCW1 ([facility]) Body weight 171.8 [lb_av] 171.8 [lb_av] eCW1 ([facility]) Body mass index (BMI) [Ratio] 26.31 kg/m2 26.31 kg/m2 eCW1 ([facility]) Body temperature 98.4 [degF] 98.4 [degF] eCW1 ( [facility]) Heart rate 82 /min 82 /min eCW1 ([facility]) Respiratory rate 18 /min 18 /min eCW1 ([facility]) Oxygen saturation in Arterial blood by Pulse oximetry 98 % 98 % eCW1 ([facility]) Patient Treatment Plan of Care Planned Activity Planned Date Details Description Data Source (s) Doxycycline Monohydrate 100 MG Oral Capsule 03/28/2021 12:00:00 AM EDT eCW1 ([facility])
[2021-06-19] MEDS ORDERED: fentaNYL 250 MCG/5 ML INJECTION (J3010) As Ordered ONE (13:50)
[2021-06-19] MEDS ORDERED: MIDAZOLAM INJ 2MG/2ML VIAL (J2250 PER 1MG) As Ordered ONE (13:50)
[2021-06-19] MEDS ORDERED: ONDANSETRON 4MG/2ML VIAL As Ordered ONE (13:51)
[2021-06-19] MEDS ORDERED: SUGAMMADEX SODIUM 500 MG/5 ML VIAL (BRIDION) As Ordered ONE (13:52)
[2021-06-19] MEDS ORDERED: propofoL 200 MG/20 ML VIAL As Ordered ONE (13:52)
[2021-06-19] MEDS ORDERED: dexameTHASONE 4 MG/ML 1ML VIAL (J1100 PER 1MG) As Ordered ONE (13:52)
[2021-06-19] MEDS ORDERED: ROCURONIUM BROMIDE 50 MG/5 ML VIAL As Ordered ONE ×2 (13:52→16:46)
[2021-06-19] MEDS ORDERED: LIDOCAINE 2% 100MG/5ML SDV (FOR ANES.) As Ordered ONE (13:52)
[2021-06-19] MEDS ORDERED: INDOCYANINE GREEN 25MG VIAL (IC-GREEN) IV ONE (15:30)
[2021-06-19] MEDS ORDERED: BUPIVACAINE HCL 0.25% 30ML VIAL As Ordered ONE (15:37)
[2021-06-19] MEDS ORDERED: LIDOCAINE 1% SDV 30ML VIAL As Ordered ONE (15:37)
[2021-06-19] MEDS ORDERED: KETOROLAC 60MG 2ML VIAL As Ordered ONE (16:39)
[2021-06-19] MEDS ORDERED: ACETAMINOPHEN 1000MG 100ML IV BTL (OFIRMEV) (J0131 PER 10MG) As Ordered ONE (16:40)
[2021-06-19] MEDS ORDERED: ePHEDrine SULFATE 25 MG/5 ML(5MG/ML) SYRINGE As Ordered ONE (16:41)
[2021-06-19] MEDS ORDERED: PHENYLephrine 500MCG 5ML (100MCG/ML) SYRINGE As Ordered ONE (16:43)
[2021-06-19] MEDS ORDERED: MEPERIDINE INJ 25 MG/ML VIAL (J2175) IV PRN (19:10)
[2021-06-19] MEDS ORDERED: ONDANSETRON 4MG/2ML VIAL IV PRN (19:10)
[2021-06-19] MEDS ORDERED: fentaNYL 100 MCG/2 ML INJECTION (J3010) IV PRN (19:10)
[2021-06-19] MEDS ORDERED: LR 1,000 ML IV SCH (19:10)
[2021-06-19] MEDS ORDERED: KETOROLAC 30 MG/ML 1ML VIAL IV PRN (19:15)
[2021-06-19] MEDS ORDERED: PERCOCET 5MG/325MG TAB PO PRN (19:15)
[2021-06-19] MEDS: HYDROMORPHONE HCL 0.5 MG/ 0.5 ML SYRINGE (J1170 PER 1) IV PRN ×2 (19:26→19:47)
[2021-06-19 22:00] VITALS: BP 128/76
== END 2021-06-19 23:33 | disposition home or self-care (01) ==
LOC: M SDC 12:52
PROVIDERS: ATTEND Surgery
DX: K80.10 Calculus of gallbladder with chronic cholecystitis without obstruction (principal); F41.9 Anxiety disorder, unspecified; F32.9 Major depressive disorder, single episode, unspecified; Z79.899 Other long term (current) drug therapy; Z87.891 Personal history of nicotine dependence
CPT/HCPCS: 47562; 88304; J0131; J1100; J1170; J1885; J2250; J2370; J2405; J3010; Q9968; S2900